=== PATIENT | male | born 1955 | race African-American/Black ===

== ENCOUNTER 2024-09-13 12:05 | Outpatient (CLI) | payer MEDICARE, MEDICAID, SELFPAY ==
--- NOTE | ~2024-09-13 | PE_ITS ---
EXAMINATION: PET_PETPSMAST_PT DATE: 09/13/2024 14:43 INDICATION: Malignant prostate cancer TECHNIQUE: 5.6 mCi of Illucix Ga-68([id number]) was administered i.v. Low dose computed tomogr aphy (CT) images were acquired from the base of the brain to the base of the brain to the proximal th ighs for attenuation correction and anatomic localization. Positron emission tomography (PET) images were acquired in the same distribution beginning 89 minutes after injection. Images including fused P ET/CT images were reconstructed in axial, coronal, and sagittal planes. Automated exposure control te [employer] was employed. The dose-length product was 1298.73mGy-cm. COMPARISON: None FINDINGS: Head/neck: Typical pattern of symmetric physiologic increased activity in the lacrimal, parotid and submandibula r glands as well as along the mucosa of the nasal and oral cavities, pharynx and hypopharynx. No path ologically enlarged cervical lymphadenopathy or suspicious foci of increased uptake in the visualized head or neck. Chest: Pleural-based calcified granulomata versus calcified pleural plaques in the dependent right lower lob e. No suspicious pulmonary nodules, pneumonia, pulmonary edema or pleural effusion. Heart size normal . Atherosclerotic coronary artery calcifications. No pericardial effusion. Thoracic aorta is normal i n caliber. Calcified right hilar lymph nodes consistent with old granulomatous disease. No pathologic ally enlarged or PSMA avid thoracic lymphadenopathy. Abdomen/pelvis/proximal thighs: Physiologic renal accumulation and excretion of activity in the kidneys, bladder and along portions o f ureters. 4 cm exophytic lesion at the upper pole the right kidney with soft tissue density but with out abnormal PSMA activity which could represent a complex proteinaceous/hemorrhagic cyst or solid re nal cell carcinoma. Photopenic defects associated with a couple cysts at the lower pole of the left k idney measuring up to 2.8 cm. Prostatomegaly with multiple brachytherapy seeds or surgical clips at t he periphery of the prostatectomy bed. There are also multiple surgical clips extending cephalad brianna g the bilateral external iliac vessels consistent with associated pelvic lymph node dissection. Incre ased PSMA activity with maximal SUV of 31.9 region of a 1.6 x 1.3 cm right external iliac chain lymph node suspicious for metastatic disease. Differential would include excreted urine activity within th e distal right ureter however the size of the region of uptake appears larger than expected for activ ity within the ureter. The ureters are unable to be definitively identified in the pelvis. No other p athologically enlarged or PSMA avid abdominal or pelvic lymphadenopathy. Postoperative changes of a p rior penile prosthesis with catheters extending along the left inguinal canal. Normal degree and slightly heterogenous pattern of increased uptake throughout the liver and spleen w ithout radiologic correlate or dominant PSMA avid lesion. The gallbladder, pancreas and bilateral adr enal glands are normal. Moderate uptake scattered throughout the bowels with typical duodenal and pro ximal jejunal predominance and without radiologic correlate, also likely physiologic. Prominent diffu se colonic diverticulosis without adjacent inflammatory stranding to suggest diverticulitis. Normal a ppendix. Musculoskeletal: Partially visualized intramedullary paige with interlocking subtrochanteric screw at the visualized pro ximal left femur. No suspicious lytic, blastic or abnormally PSA may avid bone lesions. IMPRESSION: 1. Prominent increased uptake in the right hemipelvis which appears to coincide with a 1.6 x 1.3 florentin lar right external iliac chain lymph node suspicious for metastatic disease. Artifactual activity wit hin the distal right ureter is considered significantly less likely. No other lesions suspicious for metastatic disease. 2. 4 cm exophytic lesion at the upper pole the right kidney which demonstrates soft tissue density an d could represent either a proteinaceous/hemorrhagic cyst or renal cell carcinoma. Recommend further evaluation with pre and post contrast MRI or CT. Reviewed, dictated and finalized at location A. IMPRESSION: 1. Prominent increased uptake in the right hemipelvis which appears to coincide with a 1.6 x 1.3 similar right external iliac chain lymph node suspicious for metastatic disease. Artifactual activity within the distal right ureter is cons idered significantly less likely. No other lesions suspicious for metastatic di sease. 2. 4 cm exophytic lesion at the upper pole the right kidney which demonstrates soft tissue density and could represent either a proteinaceous/hemorrhagic cyst or renal cell carcinoma. Recommend further evaluation with pre and post contra st MRI or CT.
--- OUTSIDE RECORDS SUMMARY | 2024-09-13 12:37 | XMS_ITS | Encounter Summary ---
[facility] [address] [place] [address] Phone Care Team Providers Care Pre Wave Assembler Name Role Phone Matthew Garcia MD Unavailable [phone] Matthew Garcia MD Primary Care Provider + [phone] Nando Shirley MD Unavailable [phone] Regan Robles MD Unavailable [phone] Encounter Details Date Type Department Care Team (Late st Contact Info) Description 05/20/2017 Orders Only [facility] [address] [place] [address] Matthew Garcia MD [address] [address] Social History Tobacco Use Types Packs/Day Years Used Date Smoking Tobacco: Former Smokeless Tobacco: Never Sex and Gender Information Value Date Recorded Sex Assigned at Not on file 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 Gender Identity Not on file Sexual Orientation Not on file documented as of this encounter Plan of Treatment Not on file documented as of this encounter Procedures Procedure Name Priority Date/Time Associated Diagnosis Comments SCAN - LABS 05/20/2017 11:23 AM PHOTOSTAT OPERATOR documented in this encounter Results * SCAN - LABS (05/20/2017 11:23 AM PHOTOSTAT OPERATOR) us Matthew Garcia MD Final Resu lt documented in this encounter Visit Diagnoses Not on filedocumented in this encounter Care Teams Pre Wave Assembler Relationship Specialty Start Date End Date Matthew Garcia MD PCP - General 01/23/17 Matthew Garcia MD 01/07/17 Nando Shirley MD [address] [address] Consulting Physician Orthopedic Surgery 04/29/20 Regan Robles MD [address] [place] [address] Consulting Physician Nephrology 02/05/24 documented as of this encounter
--- OUTSIDE RECORDS SUMMARY | 2024-09-13 12:37 | XMS_ITS | Encounter Summary ---
Author Organization [facility] Address [address] [place] [address] Phone Care Team Providers Care Trade Union Secretary Name Role Phone Nguyễn Bautista MD Primary Care Provider Matthew Garcia MD Unavailable [phone] Matthew Garcia MD Primary Care Provider + [phone] Nguyễn Bautista MD Primary Care Provider Matthew Garcia MD Primary Care Provider + [phone] Nando Shirley MD Unavailable [phone] Regan Robles MD Unavailable [phone] Encounter Details Date Type Department Care Team (Late st Contact Info) Description 01/16/2017 Orders Only [facility] [address] [place] [address] Matthew Garcia MD [address] [place] [address] Social History Tobacco Use Types Packs/Day Years Used Date Smoking Tobacco: Former Smokeless Tobacco: Never Sex and Gender Information Value Date Recorded Sex Assigned at Not on file 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 Gender Identity Not on file Sexual Orientation Not on file documented as of this encounter Plan of Treatment Not on file documented as of this encounter Procedures Procedure Name Priority Date/Time Associated Diagnosis Comments SCAN - LABS 01/16/2017 4:05 PM CDT documented in this encounter Results * SCAN - LABS (01/16/2017 4:05 PM CDT) Matthew Garcia MD Final Resu lt documented in this encounter Visit Diagnoses Not on filedocumented in this encounter Care Teams Trade Union Secretary Relationship Specialty Start Date End Date Nguyễ[place] [address] [address] [facility] [address] [place] [address] PCP - General 01/07/17 01/16/17 [place] [address] [address] [facility] [address] [place] [address] PCP - General 01/17/17 01/20/17 Nguyễ[place] [address] [address] [facility] [address] [place] [address] PCP - General 01/21/17 01/22/17 [place] [address] [address] [facility] [address] [place] [address] PCP - General 01/23/17 [place] [address] [address] [facility] [address] [place] [address] 01/07/17 Nando Shirley MD [address] [facility] [address] [place] [address] Consulting Physician Orthopedic Surgery 04/29/20 Regan Robles MD [address] [place] [address] [address] [place] [address] Consulting Physician Nephrology 02/05/24 documented as of this encounter
--- OUTSIDE RECORDS SUMMARY | 2024-09-13 12:37 | XMS_ITS | Encounter Summary ---
Author Organization [facility] Address [address] [place] [address] Phone Care Team Providers Care Material Combiner Name Role Phone Matthew Garcia MD Unavailable [phone] Matthew Garcia MD Primary Care Provider + [phone] Nando Shirley MD Unavailable [phone] Regan Robles MD Unavailable [phone] Encounter Details Date Type Department Care Team (Late st Contact Info) Description 07/31/2022 Orders Only [facility] [address] [place] [address] Scanning, Provider Social History Tobacco Use Types Packs/Day Years Used Date Smoking Tobacco: Former Cigarettes Q uit: 02/12/2015 Smokeless Tobacco: Never Alcohol Use Standard Drinks/Week Comments Yes 3 (1 standard drink = 0.6 oz pur e alcohol) PHQ-2 Answer Date Recorded PHQ-2 Total Score (If total score is 3 or more points, staff should administer the PHQ-9) 0 09/14/2021 Sex and Gender Information Value Date Recorded Sex Assigned at Not on file 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 Gender Identity Not on file Sexual Orientation Not on file documented as of this encounter Plan of Treatment Not on file documented as of this encounter Procedures Procedure Name Priority Date/Time Associated Diagnosis Comments SCAN - LABS 07/31/2022 documented in this encounter Results * SCAN - LABS (07/31/2022) us Provider Scanning Final Result documented in this encounter Visit Diagnoses Not on filedocumented in this encounter Care Teams Material Combiner Relationship Specialty Start Date End Date Matthew Garcia MD PCP - General 01/23/17 Matthew Garcia MD 01/07/17 Nando Shirley MD [address] [address] Consulting Physician Orthopedic Surgery 04/29/20 Regan Robles MD [address] [place] [address] Consulting Physician Nephrology 02/05/24 documented as of this encounter
--- OUTSIDE RECORDS SUMMARY | 2024-09-13 12:37 | XMS_ITS | Encounter Summary ---
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 Gender Identity Not on file Sexual Orientation Not on file documented as of this encounter Plan of Treatment Not on file documented as of this encounter Procedures Procedure Name Priority Date/Time Associated Diagnosis Comments PULMONARY - RESULT SCAN 10/24/2022 SCAN - RADIOLOGY/IMAGING 06/04/2022 documented in this encounter Results * PULMONARY - RESULT SCAN (10/24/2022) Anatomical Region Laterality Modality Other us Provider Scanning Final Result * SCAN - RADIOLOGY/IMAGING (06/04/2022) Anatomical Region Laterality Modality Other us Provider Scanning Final Result documented in this encounter Visit Diagnoses Not on filedocumented in this encounter Care Teams Proof Coins Inspector Relationship Specialty Start Date End Date Matthew Garcia MD PCP - General 01/23/17 Matthew Garcia MD 01/07/17 Nando Shirley MD [address] [facility] [address] [place] [address] Consulting Physician Orthopedic Surgery 04/29/20 Regan Robles MD [address] [place] [address] Consulting Physician Nephrology 02/05/24 documented as of this encounter
--- OUTSIDE RECORDS SUMMARY | 2024-09-13 12:37 | XMS_ITS | Continuity of Care Document ---
Author Organization [facility] Address [address] [facility] [address] [place] [address] Phone Care Team Providers Care Retail Seasonal Specialist Name Role Phone Stalin Shirleymat Unavailable Unavailable Allergies, Adverse Reactions, Alerts Substance Reaction Status Criticality No Known Allergies Active No Inform ation Medications Medication Instructions Dosage Effective Dates (start - stop) Status Comments meloxicam 15 mg tablet take 1 tablet by oral route every day 15 MG - Active Keflex 500 mg capsule take 1 capsule by oral route TID - Active metoprolol succinate ER 50 mg tablet,extended release 24 hr - Active hydrocodone 10 mg-acetaminophen 325 mg tablet - Active Narcan 4 mg/actuation nasal spray - Active hydrochlorothiazide 25 mg tablet - Active Tradjenta 5 mg tablet - Acti ve gabapentin 100 mg capsule - Active atorvastatin 40 mg tablet - Active glimepiride 1 mg tablet - Ac tive losartan 50 mg tablet - Acti ve febuxostat 40 mg tablet - Ac tive prednisone 20 mg tablet - Ac tive pioglitazone 15 mg tablet - Active Uloric 40 mg tablet - Active Colcrys 0.6 mg tablet - Acti ve cyclobenzaprine 5 mg tablet - Active methylprednisolone 4 mg tablets in a dose pack - Active tramadol 50 mg tablet - Acti ve Januvia 100 mg tablet - Acti ve trazodone 100 mg tablet - Ac tive Procedures Procedure Date X-ray exam knee, 3 views X-ray Exam Hip Unilat With Pelvis When P erf 2-3 View Office/outpatient visit,est, mod 2023 Asp/inject major joint or bursa w/o US g uidance Kenalog 40mg/mL X-ray exam knee, 4+ views Office/outpatient visit,est, mod 2022 Asp/inject major joint or bursa w/o US g uidance Kenalog 40mg/mL X-ray exam tib/fib, 2 views X-ray Exam, Femur 2 Views Office/outpatient visit,est, mod 2020 Supplemental Report X-ray Exam, Femur 2 Views X-ray exam tib/fib, 2 views Office/outpatient visit,est, mod 2020 X-ray Exam, Femur 2 Views X-ray exam tib/fib, 2 views Global/Postop followup visit Global/Postop followup visit Supplemental Report X-ray Exam, Femur 2 Views X-ray exam tib/fib, 2 views Global/Postop followup visit Supplemental Report X-ray exam knee, 4+ views Office/outpatient visit,est, mod 2019 Supplemental Report Office consultation, high Prolonged serv, w/o contact, 1st hr Advance Directives Directive Yes / No Effective Date File Name No Information Encounters Encounter Description Practice Location Reason(s) For Visit Diagnoses Date Provider Providers Copied on Encounter [facility], [address], [id number], [place] tel:[phone] [facility] No Information 4 Casper Gante deandra. [address] [facility] [place] [address], [place], [place], [id number], [place]. tel:[phone] [facility], [address] [address], [place], [place], [id number], [place] tel:[phone] [facility] No Information 4 Kayla Treviño. [address] [facility], [place] [address], [place], [place], [address], [place]. tel:[phone] Office/outpa tient visit,est, [facility], [address] [address], [place], [place], [address], [place] tel:[phone] [facility] Right Knee (chief complaint) Pain in right kneePain in right hipUnilateral primary osteoarthritis , right kneeUnilateral primary osteoarthritis , right hip 4 Kayla Treviño. [address] [facility], [place] [address], [place], [place], [id number], [place]. tel:[phone] Referring Provider: Hudson Rendon, [facility] [address], [place], [address]. tel:[phone] [facility], [address] [place] [address], [id number], [place] tel:[phone] [facility] Pain in left knee 4 [facility] Matthew. [address] [facility], [place] [address], [place], [place], [address], [place]. tel:[phone] Office/outpa tient visit,est, [facility], [address] [address], [place], [place], [address], [place] tel:[phone] [facility] right knee (chief complaint) Pain in right knee 3 [place]. [address] [place] [address], [place] [address], [place], [place], [address], [place]. tel:[phone] Referring Provider: Nando Sethi, [address] [facility] [address] [facility], [place], [address]. tel:[phone] [facility], [address] [facility] [address], [place], [place], [address], [place] tel:[phone] [facility] Pain in left knee 3 Caspercodey Wagoner r. [address] [facility], [address], [place], [place], [address], [place]. tel:[phone] [facility], [address] [address], [place], [place], [address], [place] tel:[phone] [facility] Pain in left knee Feb-0 3 Casper Wagoner r. [address] [facility], [place] [address], [place], [place], [address], [place]. tel:[phone] [facility], [address] [address], [place], [place], [address], [place] tel:[phone] [facility] Pain in left knee 2 Casper Ciaran r. [address] [facility], [address], [place], [place], [address], [place]. tel:[phone] Office/outpa tient visit,est, [facility], [address] [address], [place], [place], [address], [place] tel:[phone] [facility] left knee (chief complaint) Pain in left knee 1 Casper Ciaran r. [address] [facility], [address] [facility], [place], [place], [address], [place]. tel:[phone] Office/outpa tient visit,est, mod [facility], [address] [address], [place], [place], [address], [place] tel:[phone] [facility] left knee (chief complaint) Pain in left knee 1 Casper liriano. [address] [facility], [address], [place], [place], [address], [place]. tel:[phone] [facility], [address] [facility] [address], [place], [place], [address], [place] tel:[phone] [facility] Pain in left knee 1 Casper Wagoner r. [address] [facility], [address], [place], [place], [address], [place]. tel:[phone] [facility], [address] [facility] [address], [place], [place], [address], [place] tel:[phone] [facility] Left knee (chief complaint) Pain in left knee 1 Casper Wagoner r. [address] [facility], [address], [place], [place], [address], [place]. tel:[phone] [facility], [address] [address], [place], [place], [address], [place] tel:[phone] [facility] Pain in left knee 1 Casper Wagoner r. [address] [facility], [address], [place], [place], [address], [place]. tel:[phone] [facility], [address], [id number], [place] tel:[phone] [facility] Left Knee (chief complaint) Pain in left knee Jun-0 1 Casper Wagoner r. [address] [facility], [address], [place], [place], [address], [place]. tel:[phone] [facility], [address] [address], [place], [place], [address], [place] tel:[phone] [facility] No Information 1 Casper Gante r. [address] [facility], [address], [place], [place], [address], [place]. tel:[phone] [facility], [address], [id number], tel:[phone] [facility] Left Knee (chief complaint) Pain in left knee 1- 1 Casper Ciaran r. [address] [facility], [address], [place], [place], [address], [place]. tel:[phone] [facility], [address] [address], [place], [place], [address], [place] tel:[phone] [facility] Pain in left knee 0 2- 0 Casper Ciaran r. [address] [facility], [place] [address], [place], [place], [address], [place]. tel:[phone] Office/outpa tient visit,[facility], [facility], [address], [id number], tel:[phone] [facility] Left Knee (chief complaint) Pain in left knee 0 7- 0 Casper Ciaran r. [address] [facility], [address] [facility], [place], [place], [address], [place]. tel:[phone] Office consultation , [facility], [address], [id number], [place] tel:[phone] [facility] Left Knee (chief complaint) Pain in left knee 3 0-201 9 Casper Ciaran r. [address] [facility], [address], [place], [place], [address], [place]. tel:[phone] Family History Family Member Type Diagnosis Age At Onset Mother Problem (finding) Hypertension Mother Problem (finding) Heart Disease Sister Problem (finding) Cancer, unknown Father Problem (finding) Hypertension Sister Problem (finding) Diabetes Father Problem (finding) Heart Disease Immunizations Vaccine Date Status Comments influenza, injectable, quadrivalent, (3 years or older) administered Note: per patient ; Source: Source Unspecified Payers Payer name Insurance type Covered alliance party ID Authoriza tion(s) No Information Social History Type Description Quantity Date Captured Comments Alcohol Use Details Unknown Caffeine Use Details Unknown Tobacco Use Status No Information Smoking Status No Information Sex Male Chief Complaint And Reason For Visit No Information Reason For Referral Reason For Referral No Information Plan Of Treatment Date Type Action Status Referral Ordered: X-ray exam knee, 3 views RT knee ordered Referral Ordered: X-ray Exam Hip Unilat With Pelvis When Perf 2-3 View RT hip ordered Referral Ordered: X-ray exam knee, 4+ views RT knee ordered Referral Ordered: X-ray exam tib/fib, 2 views LT ordered Referral Ordered: X-ray Exam, Femur 2 Views LT ordered Referral Ordered: X-ray Exam, Femur 2 Views LT femur ordered Referral Ordered: X-ray exam tib/fib, 2 views LT tibia ordered Referral Ordered: X-ray exam knee, 4+ views LT knee ordered History Of Present Illness Encounter Date Complaint History Of Prese nt Illness Right Knee Ephraim presents t o the office today for evaluation of his right hip and knee pain. There has been present for a number of months in the hip, but the knee pain has been present for years. He is experiencing diffuse hip pain that is sharp and radiates into the thigh and diffuse right knee pain. He rates both the knee and hip pain at a 9 out of 10 with an aching almost constant and sharp intermittent nature. He is followed by pain management and receives prescription pain medications which she is utilizing for pain control. He is ambulating with the use of a walker at today's office visit. right knee Ephraim is a 67 ye ar-old male who presents to the office for evaluation of right knee pain. left knee Ephraim is a 65 ye ar-old male who presents to the office for evaluation of left knee pain. left knee Ephraim is a 65 ye ar-old male who presents to the office for left knee pain. Left knee Left Knee Left Knee Left Knee Left Knee Functional Status Date Functional Assessmen t No Information Instructions Date Instruction Additional Infor tito Pathophysiology of t he disease process was discussed. Conservative treatment options were discussed includin) Cortisone and viscosupplementation injections2) Physical therapy, exercise and strengthening regimen with initiation of weight training and reduction to impact loading, transition to using a bike or swimming3) Rest, ice, heat, elevation, compression4) Oral and topical nonsteroidal anti-inflammatory medication and analgesic5) Weight loss6) BracingRisks and benefits of cortisone injection were discussed. The frequency of injection schedule were discussed. At this time the patient would like to proceed with cortisone injections into the right knee. All questions were answered and concerns addressed. Ephraim demonstrates appropriate understanding of the diagnosis and plan of care at this time and we will see them back as neededWritten consent for the procedure was obtained. The patient was seated with the knees bent to 90 degrees of flexion. The right knee was prepped with alcohol and chlorhexidine. The skin was anesthetized with Ethyl Chloride spray and a 22 gauge needle was used to introduce 40 mg of Kenalog and 3 mL of 1% Lidocaine plain into the knee joint. The area of injection was then cleaned and a sterile bandage was placed. The procedure was completed without complication, and was well tolerated by the patient. Patient was educated on post injection care instructions and discharged in stable condition.Dictation completed with [employer] Practice Edition software, grammatical variances and spelling errors may inadvertently occur. Related to Unilateral primary osteoarthritis, right knee Pathophysiology of t he disease process was reviewed in depth. Conservative treatment options were reviewed including physical therapy, intra-articular joint injection under fluoroscopy, the use of ice or heat, [id number] oral and topical analgesics and NSAIDs and continued follow-up with pain management. As the pain in his knee is greater than the pain in his hip he does not wish to proceed with injection into the hip at this time. He will call and schedule appointment if he wishes to proceed with injection. All questions were answered and concerns addressed. Ephraim demonstrates appropriate understanding of the diagnosis and plan of care at this time. He will follow-up with our office as needed. Related to Unilateral primary osteoarthritis, right hip Assessments Type Assessment Date No Information Patient Care Teams Name Effective Dates (start - stop) Status Members No Information
--- OUTSIDE RECORDS SUMMARY | 2024-09-13 12:37 | XMS_ITS | Encounter Summary ---
Author Organization [facility] Address [address] [place] [address] Phone Care Team Providers Care Infection Prevention Practitioner Name Role Phone Matthew Garcia MD Unavailable [phone] Matthew Garcia MD Primary Care Provider + [phone] Nando Shirley MD Unavailable [phone] Regan Robles MD Unavailable [phone] Encounter Details Date Type Department Care Team (Late st Contact Info) Description 07/24/2017 Orders Only [facility] [address] [place] [address] Matthew Garcia MD [address] [address] Social History Tobacco Use Types Packs/Day Years Used Date Smoking Tobacco: Former Smokeless Tobacco: Never Sex and Gender Information Value Date Recorded Sex Assigned at Not on file 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 Gender Identity Not on file Sexual Orientation Not on file documented as of this encounter Plan of Treatment Not on file documented as of this encounter Procedures Procedure Name Priority Date/Time Associated Diagnosis Comments CARDIOLOGY DOCUMENT SCAN 07/24/2017 1:23 PM CDT documented in this encounter Results * SCAN - CARDIOLOGY (07/24/2017 1:23 PM CDT) Anatomical Region Laterality Modality Other Matthew Garcia MD CV CARDIAC SERVICES PROCED URES Final Result documented in this encounter Visit Diagnoses Not on filedocumented in this encounter Care Teams Infection Prevention Practitioner Relationship Specialty Start Date End Date Matthew Garcia MD PCP - General 01/23/17 Matthew Garcia MD 01/07/17 Nando Shirley MD [address] [facility] [address] [place] [address] Consulting Physician Orthopedic Surgery 04/29/20 Regan Robles MD [address] [place] [address] [address] Consulting Physician Nephrology 02/05/24 documented as of this encounter
--- OUTSIDE RECORDS SUMMARY | 2024-09-13 12:38 | XMS_ITS | CONTINUITY OF CARE DOCUMENT ---
Author Name ubaldo conner Address Unknown Organization [facility] [address] Address [address] [place] [address] Phone [phone] Care Team Providers Care Chipper Operator Name Role Phone Ayden FRIED, Gisela Unavailable Gisela Hensley MD Unavailable [phone] INSURANCE PROVIDERS Payer name Policy type / Coverage type [place] [employer] party ID [employer] AD[employer]TRA HMO Commercial insurance co [facility] [id number] HEALTHCARE AND FAMILY SERVICES Medicaid 0 [id number]
--- OUTSIDE RECORDS SUMMARY | 2024-09-13 12:38 | XMS_ITS | Clinical Summary ---
Author Organization [facility] [address] Address [address] [facility] [place] [address] Phone Care Team Providers Care Can Stacker Name Role Phone Michael Garcia MD Unavailable [phone] Michael Garcia MD Primary Care Provider [phone] Nando Shirley MD Unavailable [phone] Regan Robles MD Unavailable [phone] Allergies No known active allergies Medications blood-glucose meter (ONETOUCH ULTRA SYSTEM KIT) kit use once daily to test blood sugar 1 kit 0 03/03/20 13 Active HYDROcodone-aceta minophen (NORCO) 10-325 mg per tablet Take 1 tablet by mouth every 6 (six) hours as needed 12/15/19 19 Active blood glucose diagnostic (OneTouch Ultra Test) strip USE TO TEST EVERY DAY 100 strip 1 05/09/20 23 Active OneTouch Delica Plus Lancet 30 gauge misc USE TO CHECK BLOOD SUGAR ONCE DAILY 100 each 1 05/09/20 23 Active tamsulosin (FLOMAX) 0.4 mg extended release capsule Take 1 capsule (0.4 mg total) by mouth daily 11/19/19 24 025 Active allopurinoL (ZYLOPRIM) 300 mg tabletIndications :Idiopathic gout, unspecified chronicity, unspecified site Take 1 tablet by mouth once daily 90 tablet 1 03/30/20 24 Active calcitRIOL (ROCALTROL) 0.25 mcg capsuleIndication s:Vitamin D deficiency Take 1 capsule by mouth once daily 90 capsule 1 05/13/19 25 Active mecobalamin-folic acid 1,000-200 mcg tablet, sublingual Place 1 tablet under the tongue daily Active amLODIPine (NORVASC) 5 mg tabletIndications :Heart palpitations Take 1 tablet (5 mg total) by mouth daily 90 tablet 1 07/07/19 25 Active aspirin 81 mg enteric coated tabletIndications :Heart palpitations Take 1 tablet (81 mg total) by mouth daily 90 tablet 1 07/07/19 25 Active linaGLIPtin (Tradjenta) 5 mg tabletIndications :Type 2 diabetes mellitus with chronic kidney disease, without long-term current use of insulin, unspecified CKD stage (HCC) Take 1 tablet by mouth once daily 90 tablet 1 08/07/19 25 Active carvediloL (COREG) 3.125 mg tabletIndications :Other chest pain Take 1 tablet (3.125 mg total) by mouth 2 (two) times a day 180 tablet 1 08/24/19 25 Active atorvastatin (LIPITOR) 40 mg tabletIndications :Mixed hyperlipidemia Take 1 tablet by mouth once daily 90 tablet 1 09/02/19 25 Active atorvastatin (LIPITOR) 40 mg tabletIndications :Mixed hyperlipidemia Take 1 tablet by mouth once daily 90 tablet 1 03/05/20 24 025 Discontinued carvediloL (COREG) 3.125 mg tablet Take 1 tablet (3.125 mg total) by mouth 2 (two) times a day 05/25/19 25 025 Discontinued(Re order) Active Problems Problem Noted Date Diagnosed Date End stage renal disease 07/20/2024 Dizziness 04/26/2024 Assessment & Plan (07/17/2024 6:35 PM OIL RIG ROUGHNECK): Patient is admitted to [facility] in end of 13 May 2024 because of dizziness sustained approximately 3 days did see him on a follow-up visit his dizziness has resolved at this time no further testing indicated. Patient is so advised. Assessment & Plan (07/14/2024 4:41 PM OIL RIG ROUGHNECK): Admitted to [facility] on 05/24/2024 intense dizziness patient is subsequently discharged on May 26, 2024 and went to extended Care for 2 days and discharge for home patient has a thorough evaluation including CT scans head cardiac monitoring exact etiology was found patient has known end-stage renal disease. Patient is awaiting renal transplant. Dialysis has been discussed with his route delivery driver Dr. Robles. The time of his visit on 06/03/2024 his symptoms dizziness have improved by least 80%. Medication reconciliation completed. Chronic health problems hypertension, hyperlipidemia, renal failure. Patient's diabetes excellent control for last 4 years. Hemoglobin 6.6-7.0 range consistently. Note for the visit of 06/03/2024 Assessment & Plan (05/08/2024 3:25 PM OIL RIG ROUGHNECK): Acute, symptoms in the last 1-2 weeks. See recent ER visit for these symptoms as outlined in HPI. Labs and head CT were unremarkable except for chronic CKD. Has also been in discussion with Cardiology that it may be related to his blood pressure- see plan for hypertension above. Has resolved since stopping nifedipine. Encounter for screening colonoscopy 06/20/2023 Heart palpitations 08/07/2022 Assessment & Plan (08/07/2022 3:45 PM CDT): Or palpitation several times a week this is new onset for him. Plans get a 30 day playground monitor. Patient's chronic renal failure diabetic. He is no significant chest pain or shortness with palpitations but they are aggravating to him Chronic left hip pain 05/22/2022 Assessment & Plan (05/22/2022 2:18 PM OIL RIG ROUGHNECK): Patient advised me has significant left hip pain the pain clinic is referring him to Dr. Pelaez orthopedic surgeon. 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 His lipid profile for 2019 for his pending previous lipid profile in therapeutic range Component Latest Ref Rng 11/07/2022 Cholesterol 30 - 199 mg/dL 161 Triglycerides <=149 mg/dL 98 HDL Cholesterol >=40 mg/dL 48 LDL Cholesterol Calc <=129 mg/dL 93 Non-HDL Cholesterol mg/dL 113 Chol/HDL ratio 3 Assessment & Plan (08/01/2023 5:49 PM CDT): Lipid profile therapeutic range no change in therapy Component Latest Ref Rng 11/07/2022 Cholesterol 30 - 199 mg/dL 161 Triglycerides <=149 mg/dL 98 HDL Cholesterol >=40 mg/dL 48 LDL Cholesterol Calc <=129 mg/dL 93 Non-HDL Cholesterol mg/dL 113 Chol/HDL ratio 3 GERD (gastroesophageal reflux disease) 0 CKD (chronic kidney disease) stage 5, GFR less than 15 ml/min 05/08/2020 Assessment & Plan (07/17/2024 6:36 PM OIL RIG ROUGHNECK): End-stage renal disease patient has seen a vascular surgeon had the [facility] preparing for dialysis at this time all of his lab is done by Nephrology Dr. Robles. Assessment & Plan (06/14/2024 1:43 PM OIL RIG ROUGHNECK): Considering patient utilizes both of his upper extremities for mobility and function due to his previous left knee issues, he would like to hold on any surgical procedural intervention at this point until he requires hemodialysis. We discussed the possibility of utilizing a Perma catheter at that point to see how he tolerates dialysis and then from there entertain permanent access options. He was agreeable to this plan, as he wants to maintain his level of function and not does not want to jeopardize it at any cost. Patient will call if and when he requires hemodialysis for next steps. Assessment & Plan (05/08/2024 3:22 PM OIL RIG ROUGHNECK): Chronic, stable. Co managed by Nephrology Baseline creatinine around 3.5, recent creatinine last week was up to 4.6. He is not on dialysis yet but has been discussing with his route delivery driver Dr. Robles. Continue hydrochlorothiazide and losartan as prescribed for now. We will continue to monitor Assessment & Plan (02/22/2024 6:39 PM CDT): Patient has end-stage renal disease stage IV. He is under care of Dr. Aravind Robles route delivery driver. Assessment & Plan (01/10/2024 4:26 PM CDT): Images from the original note were not included. Patient continues see Nephrology has appointment in the next 10 days. Made no changes in his medication with respect to his hypertension. Patient EGFR is 19 his diabetes has been reasonably controlled.. [facility] Outside Information Contains abnormal data Renal function panel Specimen: Blood - Blood, Venous Component Ref Range & Units 9 d ago Glucose 70 - 99 mg/dL 150 Abnormal BUN 8 - 19 mg/dL 50 Abnormal Creatinine 0.66 - 1.25 mg/dL 3.82 Abnormal Sodium 137 - 145 mEq/L 137 Potassium 3.5 - 5.1 mEq/L 4.7 Chloride 98 - 107 110 Abnormal Carbon Dioxide 22 - 30 mmol/L 24 Calcium 8.4 - 10.2 mg/dL 9.2 Phosphorus, Serum 2.5 - 4.5 mg/dL 4.0 Albumin (Blood) 3.0 - 4.4 g/dL 3.3 eGFR 1 Assessment & Plan (08/07/2022 3:43 PM CDT): Lab visit coming up in the next few weeks patient recently lab results pending ordered by Dr. Robles route delivery driver. Assessment & Plan (05/22/2022 2:11 PM OIL RIG ROUGHNECK): Patient advised me that Dr. Robles his route delivery driver advised him in approximately 1 year he may need to start dialysis Assessment & Plan (09/14/2021 3:35 PM CDT): Update BMP/EGFR to monitor patient chronic renal failure status Assessment & Plan (04/12/2021 1:51 PM OIL RIG ROUGHNECK): Patient under care of Dr. Aravind Robles he has had appointment the last 30 days I reviewed the notes patient is stable at this time. Patient has stage III chronic renal failure S/P total knee arthroplasty, left 05/08/2020 Left knee pain 03/13/2020 Overview (03/13/2020): Added automatically from request for surgery [id number] Medicare annual wellness visit, subsequent 02/10 Assessment & Plan (11/07/2022 6:49 PM CDT): History and physical completed patient's health risk assessment health maintenance reviewed in addressed. Seven components of patient's care gap are addressed. He is under care of route delivery driver therefore routine laboratory studies that I would do his part of his diabetes for his kidneys managed by his route delivery driver.. Assessment & Plan (09/14/2021 3:33 PM CDT): History and physical completed patient's health risk assessment health maintenance reviewed in completed. Patient's pneumonia shots have been completed both Pneumovax 23 and Prevnar 13 patient has completed COVID vaccines as well. He has states he has had eye exam by eye care provider . Request release of records from his eye care provider Assessment & Plan (02/11/2020 1:05 PM CDT): History and physical completed patient's health risk assessment health maintenance reviewed in addressed. Patient advised me received is a flu shot yesterday [facility]. Hemorrhoids 07/27/2019 Overview (07/27/2019): Added automatically from request for surgery [id number] Assessment & Plan (08/01/2023 5:44 PM CDT): Patient continues to have bleeding hemorrhoids he is advised me he is scheduled for colonoscopy in September of 2023 Assessment & Plan (09/14/2021 3:34 PM CDT): Patient is under care of GI regarding his hemorrhoidal problem Assessment & Plan (05/15/2021 3:00 PM OIL RIG ROUGHNECK): No hemorrhoids were seen on exam with valsalva, patient states once in a while he can feel them come out, and has been having more issues with bleeding with bowel movements. We discussed surgical approach vs gi scope/repeat infrared session, he is agreeable to GI less invasive as first approach, will send new referral for GI provider. Patient is understanding if gi is unable to fix the issue that we can then discuss the surgical approach, he is understanding. Assessment & Plan (04/12/2021 1:51 PM OIL RIG ROUGHNECK): Hemorrhoids continues to be a problem he has seen Dr. Oscar mcgarry of [facility] and the infrared coagulation treatment has not been effective will refer to General surgery. Assessment & Plan (11/08/2019 5:42 PM CDT): Symptomatic hemorrhoids related to constipation patient given samples MiraLax stool softener. Diabetic nephropathy associa brea with type 2 diabetes mellitus 02/22/2019 Hyperparathyroidism due to renal insufficiency 1 History of colon polyps 06/08/2018 Overview (06/08/2018): Added automatically from request for surgery [id number] Morbid obesity with BMI of 40.0-44.9, adult 12/2017 Assessment & Plan (07/17/2024 6:38 PM OIL RIG ROUGHNECK): Chronic problem unchanged BMI 40 past years BMI will be between 38-40. Comorbidity blood pressure well controlled diabetes well controlled end-stage renal disease weight 267 lb height 5 feet 8-1/2 inches Assessment & Plan (01/10/2024 4:36 PM CDT): Patient's body mass index is 40.52. Comorbidities hypertension, hypertension well controlled , chronic renal disease stage IV. Patient's obesity is a chronic problem 20+ years Assessment & Plan (11/07/2022 6:49 PM CDT): Patient's body mass index at this time is 34.47. His limited mobility secondary to his advanced arthritis both knees and hips. He walks with a walker Assessment & Plan (01/22/2022 4:07 PM CDT): No significant change in weight. Patient's limited in terms of activities secondary to his physical limitations of osteoarthritis and bilateral knee replacements. Assessment & Plan (02/08/2019 6:15 PM CDT): Weight is down 16 lb from 2 years ago patient has made some adjustments in his diet his diabetes is improving. Assessment & Plan (04/27/2018 5:04 PM OIL RIG ROUGHNECK): Body mass index 42.13 the patient is 5 ft 10 heigt 239 lb weight patient's osteoarthritis limits his exercise. Assessment & Plan (09/16/2017 10:54 AM CDT): History of morbid obesity for last 20 years patient aware the impact obesity on his health. Again recommend dietary restrictions. Patient is very limited on exercise secondary to severe arthritis. Vitamin D deficiency 06/28/2017 Overview (06/28/2017): Lab panel from the pain clinic shows vitamin-D level is down recheck that at this time advised patient take vitamin-D [id number]. No new recommendations Erectile dysfunction following radical prostatec lakeisha 04/11/2017 Assessment & Plan (04/11/2017 1:06 PM OIL RIG ROUGHNECK): Patient requested Viagra, was given samples by his urologist tried 1 time it did not work. Patient is given samples of Viagra 100 milligrams he understands instructions on how to take. Chronic pain of right knee 03/10/2017 Assessment & Plan (05/14/2021 3:52 PM OIL RIG ROUGHNECK): For the past 30 days he has had increased right knee pain. Patient's left knee status post knee replacement multiple complications. Patient's opinion needs putting more work load on his right knee which he may very well be doing.. Pain is worsened going from sitting to standing getting out of vehicles is HL as to him. He also feels like the knees wobbling his hips going to give out sometimes.. Patient is on hydrocodone for the pain clinic for his back.. This time get rec x-rays of his right knee start him on Naprosyn 500 mg b.i.d. every day one-month supply for refills progress report in 3-4 weeks. Assessment & Plan (02/11/2020 1:07 PM CDT): Patient's anticipate get the need for replacement in the next 60 days . Point with orthopedics scheduled for Friday Assessment & Plan (07/09/2019 12:57 PM OIL RIG ROUGHNECK): Patient advised me that he so a orthopedic surgeon is specializes in reconstructive knee surgery was advised he must lose weight before surgery to be done in the [place] get his HgbA1c down to 6.0.. I advised this patient and get back in contact with the orthopedic surgeon once his HgbA1c comes back next given results. I also get a specific goal on weight loss for his knee before surgery will be done. Assessment & Plan (10/06/2018 5:27 PM CDT): Patient fell injuries left knee. She is not having pain and swelling. Knee rid replaced least 6 7 years ago related to [employer]'s comp case. He advised me his traffic law attorney of a total in contact his PCP regarding this. Patient x-ray returned showing he has a fractured patella a broken screw in the prosthesis. Patient is to contact his traffic law attorney is any [employer]'s comp a involvement which I seriously doubt. Otherwise refer this patient to Dr. Guzman . Assessment & Plan (04/27/2018 5:12 PM OIL RIG ROUGHNECK): Chronic condition special left knee patient is wear knee brace permanently no change in status. Managed by Orthopedics. Drug-induced constipation 02/15/2017 Assessment & Plan (04/27/2018 5:12 PM OIL RIG ROUGHNECK): Managed by pain clinic. Assessment & Plan (02/15/2017 9:41 AM CDT): Patient having some constipation status post recent surgery in medication. Given samples of Linzess 72 milligrams 1 tablet daily. He needs to additional medicines he will call me for a prescription. Hospital discharge follow-up 02/10/2017 Assessment & Plan (05/25/2020 6:15 PM OIL RIG ROUGHNECK): Patient admitted to her [facility] had a total knee hardware of removed on 04/28/2020. Patient subsequently sent to a rehab at [facility]. Patient is doing well today blood pressures reviewed medications reviewed reconciliation of his medication completed. He is in no distress he has no respiratory cardiac problems. Patient keep his appointment with me this bring no further changes or recommendations at this time Assessment & Plan (02/15/2017 9:01 AM CDT): Patient's has prostate surgery since I last saw him. Following the surgery went back in for renal failure which was resolved was a temporary situation. Patient is now having considerable incontinence following his prostate surgery which is expected some people have this. He has no blood in his urine done no significant pain. Type 2 diabetes mellitus with renal complication 12/24/2016 Assessment & Plan (04/26/2024 10:00 PM OIL RIG ROUGHNECK): >>ASSESSMENT AND PLAN FOR DM (DIABETES MELLITUS) ([facility]) WRITTEN ON 11/09/2016 3:08 PM BY MICHAEL GARCIA MD Diabetes is unchanged. Continue current treatment regimen. Reminded to bring in blood sugar diary at next visit. Dietary recommendations for ADA diet. Discussed ways to avoid symptomatic hypoglycemia. Discussed sick day management. Discussed foot care. Diabetes will be reassessed in 6 months. Most recent hemoglobin HgbA1c was 6.63 months ago. Patient's hemoglobin A1cs have always been less than 7.0 Assessment & Plan (04/26/2024 10:00 PM OIL RIG ROUGHNECK): >>ASSESSMENT AND PLAN FOR DM (DIABETES MELLITUS) ([facility]) WRITTEN ON 04/11/2017 10:15 AM BY MICHAEL GARCIA MD . Patient's last HgbA1c was June 2016 was 6.6 plans at this time repeat hemoglobin HgbA1c today. Assessment & Plan (04/26/2024 10:00 PM OIL RIG ROUGHNECK): >>ASSESSMENT AND PLAN FOR DM (DIABETES MELLITUS) ([facility]) WRITTEN ON 06/06/2017 11:12 AM BY MICHAEL GARCIA MD Patient's hemoglobin HgbA1c has changed from 6.4 a year ago to 7.2 the past 30 days however patient is anemic with a hemoglobin of 9.2. Will start januvia at this time recheck in 3 months. Metformin previous discontinued because of renal functions. Assessment & Plan (04/26/2024 10:00 PM OIL RIG ROUGHNECK): >>ASSESSMENT AND PLAN FOR DM (DIABETES MELLITUS) ([facility]) WRITTEN ON 09/16/2017 10:50 AM BY MICHAEL GARCIA MD Diabetes is been pretty much under good control will get a repeat hemoglobin HgbA1c today. Assessment & Plan (04/26/2024 10:00 PM OIL RIG ROUGHNECK): >>ASSESSMENT AND PLAN FOR DM (DIABETES MELLITUS) ([facility]) WRITTEN ON 04/27/2018 5:07 PM BY MICHAEL GARCIA MD Diabetes has been well controlled hemoglobin HgbA1c runs anywhere from 6.4-7.1 range no change in therapy at this time Assessment & Plan (04/26/2024 10:00 PM OIL RIG ROUGHNECK): >>ASSESSMENT AND PLAN FOR DM (DIABETES MELLITUS) ([facility]) WRITTEN ON 07/24/2018 4:31 PM BY MICHAEL GARCIA MD Diabetes is unchanged. Continue current treatment regimen. Reminded to bring in blood sugar diary at next visit. Dietary recommendations for ADA diet. Regular aerobic exercise. Discussed ways to avoid symptomatic hypoglycemia. Discussed sick day management. Discussed foot care. Diabetes will be reassessed in 6 months. Assessment & Plan (04/26/2024 10:00 PM OIL RIG ROUGHNECK): >>ASSESSMENT AND PLAN FOR DM (DIABETES MELLITUS) ([facility]) WRITTEN ON 10/06/2018 5:27 PM BY MICHAEL GARCIA MD Patient's last hemoglobin HgbA1c was 7.2. Will repeat HgbA1c today date of lipid profile and BMP. Patient has limited exercise given his restriction with his knees Assessment & Plan (04/26/2024 10:00 PM OIL RIG ROUGHNECK): >>ASSESSMENT AND PLAN FOR DM (DIABETES MELLITUS) ([facility]) WRITTEN ON 02/08/2019 6:18 PM BY MICHAEL GARCIA MD Diabetes reasonably controlled hemoglobin HgbA1c 7.2 patient is limited in terms of exercising due secondary to severe arthritis of his knee pain. Is following a diet much better his weight is stable. No further recommendations at this time continue to monitor his diabetes. Will check lipid profile on next visit. Patient's advised he needs to get an update on his eye exam. Assessment & Plan (04/26/2024 10:00 PM OIL RIG ROUGHNECK): >>ASSESSMENT AND PLAN FOR DM (DIABETES MELLITUS) ([facility]) WRITTEN ON 07/09/2019 12:54 PM BY MICHAEL GARCIA MD Patient's weight is down 16 lb from the last visit he has made dietary changes since May 12 he is no longer a eating candy drinking sodas. Anticipate his HgbA1c below be improved as well as lipid profile. Assessment & Plan (04/26/2024 10:00 PM OIL RIG ROUGHNECK): >>ASSESSMENT AND PLAN FOR DM (DIABETES MELLITUS) ([facility]) WRITTEN ON 08/13/2019 4:13 PM BY MICHAEL GARCIA MD Patient's diabetes very well control HgbA1c is 6.9 % improvement from 7.8 approximately 10 months ago.. Patient is taking Actos/pioglitazone and tradjenta. 5mg/day. Repeat HgbA1c on next visit. Assessment & Plan (04/26/2024 10:00 PM OIL RIG ROUGHNECK): >>ASSESSMENT AND PLAN FOR DM (DIABETES MELLITUS) ([facility]) WRITTEN ON 11/08/2019 5:42 PM BY MICHAEL GARCIA MD Last hemoglobin HgbA1c was 7.1 will get update today patient's low bit less active at this time because of knee pain. His findings standing patient's knee pain has been delayed because of his HgbA1c 6.5 . No polyuria polyphagia polydipsia. Will consider a SGOT 2 product if his HgbA1c does not returned closer to normal Assessment & Plan (04/26/2024 10:00 PM OIL RIG ROUGHNECK): >>ASSESSMENT AND PLAN FOR DM (DIABETES MELLITUS) ([facility]) WRITTEN ON 02/11/2020 1:06 PM BY MICHAEL GARCIA MD Patient most HgbA1c was 6.6. Repeat HgbA1c in 4 months Assessment & Plan (04/26/2024 10:00 PM OIL RIG ROUGHNECK): >>ASSESSMENT AND PLAN FOR DM (DIABETES MELLITUS) ([facility]) WRITTEN ON 04/20/2020 6:59 PM BY MICHAEL GARCIA MD Diabetes continues to be well controlled. Assessment & Plan (04/26/2024 10:00 PM OIL RIG ROUGHNECK): >>ASSESSMENT AND PLAN FOR DM (DIABETES MELLITUS) ([facility]) WRITTEN ON 12/11/2020 7:00 PM BY MICHAEL GARCIA MD Patient feels well continues to check his glucose several times a week results been very good. Will update HgbA1c urine for microalbuminuria and BMP on today's visit. Patient made aware he needs to get eye exam once a year. Assessment & Plan (04/26/2024 10:00 PM OIL RIG ROUGHNECK): >>ASSESSMENT AND PLAN FOR DM (DIABETES MELLITUS) ([facility]) WRITTEN ON 04/12/2021 1:48 PM BY MICHAEL GARCIA MD Tension well controlled patient recent HgbA1c at the route delivery driver's office results was 6.9. No change in therapy Assessment & Plan (04/26/2024 10:00 PM OIL RIG ROUGHNECK): >>ASSESSMENT AND PLAN FOR DM (DIABETES MELLITUS) ([facility]) WRITTEN ON 01/22/2022 4:09 PM BY MICHAEL GARCIA MD Hemoglobin HgbA1c 7.3 patient has no polyuria polyphagia polydipsia. Will continue present therapy. Reviewed patient's glucometer readings. Recheck HgbA1c Assessment & Plan (04/26/2024 10:00 PM OIL RIG ROUGHNECK): >>ASSESSMENT AND PLAN FOR DM (DIABETES MELLITUS) ([facility]) WRITTEN ON 08/07/2022 3:41 PM BY MICHAEL GARCIA MD Patient did not tolerate Toujeo at 1.5 mg once a week I am going to resume Tradjenta management of his diabetes the Tradjenta his HgbA1c was 7.15 April 2022. Patient's chronic renal failure he just had lab [facility] in [facility] in the past 5 days requested release of records from there. Patient will be seen in route delivery driver next few days. Like to maximize medications control his diabetes. He is stage IV chronic renal failure last EGFR was 25 Assessment & Plan (02/22/2024 6:40 PM CDT): End-stage renal disease patients is on Tradjenta he is not on insulin in his hemoglobin HgbA1c has been between 6.4-7.0 the past 4 years. No change in therapy regarding his diabetes Assessment & Plan (11/07/2022 6:50 PM CDT): Diabetes very well controlled HgbA1c is 6.7 patient is tolerating medications no change in therapy.. His diabetes with chronic renal failure. Hgb A1C Latest Ref Rng 4.0 - 5.6 % 07/09/2019 6.9 (H) 11/08/2019 6.6 (H) 04/18/2020 6.7 (H) 12/11/2020 6.9 (H) 09/14/2021 7.3 (H) 11/07/2022 6.7 (H) Legend: (H) High Assessment & Plan (04/26/2024 10:00 PM OIL RIG ROUGHNECK): >>ASSESSMENT AND PLAN FOR TYPE 2 DIABETES MELLITUS WITH RENAL COMPLICATION (HCC) WRITTEN ON 06/26/2022 3:11 PM BY MICHAEL GARCIA MD Patient was given Trulicity on the last visit. Developed diarrhea within 2 days of taking Trulicity decided to stop it. He is now her more information on Trulicity in the positive aspects he would like to resume. Advised him to proceed with 0.75 mg once weekly progress report when he gets his last dose has 3 doses left. Most recent HgbA1c is 7.3 >>ASSESSMENT AND PLAN FOR DM (DIABETES MELLITUS) (HCC) WRITTEN ON 06/26/2022 3:10 PM BY MICHAEL GARCIA MD Patient was given Trulicity on the last visit. Developed diarrhea within 2 days of taking Trulicity decided to stop it. He is now her more information on Trulicity in the positive aspects he would like to resume. Advised him to proceed with 0.75 mg once weekly progress report when he gets his last dose has 3 doses left. Most recent HgbA1c is 7.3 Assessment & Plan (05/22/2022 2:11 PM OIL RIG ROUGHNECK): Patient's HgbA1c is 7.5 minute discontinue Tradjenta replace this with Trulicity 0.75 mg once a week is 4 weeks supply samples are given. Patient understands that in the 4 weeks he is let me know if he is tolerating medicines I will titrate up as needed. Assessment & Plan (09/14/2021 3:34 PM CDT): Diabetes has been well controlled will get an update on his BMP fasting lipid profile as well as HgbA1c today. Assessment & Plan (08/07/2020 12:19 PM CDT): Hemoglobin HgbA1c is been consistently less than 7 for last year and a half. Will repeat check on next visit in 4 months. Glucometer readings reasonably good. Patient is feeling in his foot and his circulation is good. Malignant neoplasm of prostate 12/05/2016 Chronic midline low back pain with left-sided sc iatica 11/27/2016 Assessment & Plan (01/10/2024 4:28 PM CDT): Chronic back pain patient utilizes Tylenol he can not utilize non steroidal anti-inflammatorys secondary to renal failure. Assessment & Plan (07/24/2018 4:33 PM CDT): Patient made me aware that he is having chronic neck pain is been follow-up in the pain clinic regarding this. Advised patient to continue exercises that he was taught at the pain clinic. Impaired gait and mobility 11/27/2016 Assessment & Plan (11/07/2022 6:52 PM CDT): Patient does very well ambulating with the walker for the past several years. No history of falls in the past 2 years Chronic narcotic use 11/27/2016 Overview (11/26/2023): Has been on [place] for about the past 2 years for chronic low back pain. History of gout 11/27/2016 Tobacco abuse, in remission 11/27/2016 Overview (11/26/2023): Stop smoking cigarettes October 2015. Total of 15 pack year history. He initially smoked 1 pack per day for 10 years then quit for 20 years and then resume 1 pack per day for another 5 years and then quit October 2015. Malignant neoplasm of prosta te with intermediate recurrence risk, stage T2B-C or Neligh 7 or prostate-specific antigen (PSA) 10-20 11/09/2016 Assessment & Plan (11/09/2016 3:02 PM CDT): Patient recently had a biopsy showing prostate cancer. Schedule have surgery in about 2-3 weeks he will be treated through [facility] Grade III hemorrhoids 11/09/2016 Assessment & Plan (07/27/2019 1:20 PM CDT): III roids. Discussed options of conservative treatment, IRC, surgery. He desires IRC so will set it up Assessment & Plan (07/09/2019 12:55 PM OIL RIG ROUGHNECK): Patient continues to have bleeding hemorrhoids he states he will get back in contact with the hedis abstractor possibly have a procedure done this solve this problem. Assessment & Plan (04/30/2019 3:37 PM OIL RIG ROUGHNECK): Bleeding cihaq1um prolapse and reviewed recent colonoscopy. Discussed anusol HC, IRC, surgery. He wants to try the anusol first. His Left knee need reconstruction and I warned of the opiod induced [id number] so he is aware of need of combating that post op. He to see the surgeon at [facility] next week. He will call to try IRC after xmas if supps fail. Assessment & Plan (11/09/2016 3:03 PM CDT): Patient had a biopsy of his prostate few weeks ago. He is having some blood on toilet, and occasional rectal discomfort. The patient is given patient information regarding management of hemorrhoids including using Preparation-H or similar products. Because of his osteoarthritis he cannot take of and Sitz baths. Hypertension, essential 06/28/2015 Assessment & Plan (05/08/2024 3:17 PM OIL RIG ROUGHNECK): Chronic, uncontrolled. See HPI for details, cardiology had increased his nifedipine but he got dizzy and they meant to decrease it back to 30 but he stopped it altogether and has been without it for the last 2 or 3 days. Running 170s over 80s at home and now complaining of intermittent frontal throbbing headaches. Advised to restart nifedipine 30 mg as directed, continue losartan, metoprolol, isosorbide, hydrochlorothiazide as prescribed. Low-salt diet and heart healthy exercise encouraged. Assessment & Plan (04/26/2024 9:58 PM OIL RIG ROUGHNECK): >>ASSESSMENT AND PLAN FOR HTN (HYPERTENSION), BENIGN WRITTEN ON 08/07/2020 12:18 PM BY MICHAEL GARCIA MD Slight elevation blood pressure today. Patient just completed physical therapy is doing well. No change in therapy at this time see him back in 4 months. Patient has gained 10 lb since his last visit he plans to do better in manage his diet. Assessment & Plan (04/26/2024 9:58 PM OIL RIG ROUGHNECK): >>ASSESSMENT AND PLAN FOR HTN (HYPERTENSION), BENIGN WRITTEN ON 04/12/2021 1:49 PM BY MICHAEL GARCIA MD Hypertension well controlled patient is tolerating medications. Us with patient trying may do better at controlling weight. Assessment & Plan (04/26/2024 9:58 PM OIL RIG ROUGHNECK): >>ASSESSMENT AND PLAN FOR HTN (HYPERTENSION), BENIGN WRITTEN ON 01/22/2022 4:03 PM BY MICHAEL GARCIA MD Systolic pressures have confirmed systole in 140 range diastolic readings are good. Is tolerating medications no change in therapy Assessment & Plan (04/26/2024 9:58 PM OIL RIG ROUGHNECK): >>ASSESSMENT AND PLAN FOR HTN (HYPERTENSION), BENIGN WRITTEN ON 05/22/2022 2:10 PM BY MICHAEL GARCIA MD Hypertension remains very well controlled patient is tolerating medications no change in therapy Assessment & Plan (04/26/2024 9:58 PM OIL RIG ROUGHNECK): >>ASSESSMENT AND PLAN FOR HTN (HYPERTENSION), BENIGN WRITTEN ON 06/26/2022 3:09 PM BY MICHAEL GARCIA MD Blood pressure remains well control no change in therapy Assessment & Plan (08/01/2023 5:47 PM CDT): Blood pressure remains well controlled patient has chronic renal disease and diabetes is also sees a route delivery driver no change in therapy Assessment & Plan (03/23/2023 4:34 PM OIL RIG ROUGHNECK): Blood pressure remains reasonably control no change in therapy Assessment & Plan (08/07/2022 3:35 PM CDT): Hypertension remains well controlled no change in therapy Assessment & Plan (12/11/2020 7:01 PM CDT): Blood pressure remains unchanged patient is tolerating medications no change in therapy. Assessment & Plan (05/25/2020 6:16 PM OIL RIG ROUGHNECK): Medication reviewed from his recent hospitalization no changes continue present therapy. Patient is asymptomatic with respect any symptoms referable to his hypertension. Assessment & Plan (04/20/2020 6:54 PM OIL RIG ROUGHNECK): Hypertension well control no change in therapy. Assessment & Plan (11/08/2019 5:43 PM CDT): Hypertension remains well control no change in therapy continue present medications.. Patient is tolerating medications. Assessment & Plan (08/13/2019 4:14 PM CDT): Hypertension remains well control no change in therapy Assessment & Plan (07/09/2019 12:55 PM OIL RIG ROUGHNECK): Hypertension well control no change in therapy patient is tolerating his medications he has no symptoms referable to his hypertension. Assessment & Plan (02/08/2019 6:17 PM CDT): Blood pressure remains well controlled patient is tolerating medications no change in therapy. Assessment & Plan (07/24/2018 4:32 PM CDT): Hypertension well control no change in therapy see this patient back in the next several months. Patient is tolerating medications. Assessment & Plan (04/27/2018 5:19 PM OIL RIG ROUGHNECK): Hypertension well controlled patient is tolerating medicines. Continue present therapy. Assessment & Plan (09/16/2017 10:49 AM CDT): Hypertension is unchanged. Continue current treatment regimen. Dietary sodium restriction. Weight loss. Continue current medications. Blood pressure will be reassessed at the next regular appointment. Type 2 diabetes mellitus without complication Assessment & Plan (01/10/2024 4:28 PM CDT): Hemoglobin HgbA1c noted route delivery driver no 12/31/2023 states his HgbA1c was 6.8. Patient's last HgbA1c in July was 7.0. He remains on Tradjenta 5 mg daily. Have end-stage renal disease which could be hypertension diabetic etiology is route delivery driver is not identified exact cause of his chronic renal failure. Given his HgbA1c I have no new recommendations on management of his diabetes. Hgb A1C Estim. Avg Glu (eAG) Latest Ref Rng 4.0 - 5.6 % mg/dL 04/18/2020 6.7 (H) 146 12/11/2020 6.9 (H) 151 09/14/2021 7.3 (H) 163 11/07/2022 6.7 (H) 146 08/01/2023 7.0 (H) 154 Legend: (H) High Assessment & Plan (08/01/2023 5:46 PM CDT): Diabetes been well controlled hemoglobin HgbA1c consistent less than 7 will update his HgbA1c today. Patient is a follow-up with his route delivery driver in November his GFR on last visit was 30 I will see this patient in December. Patient's advised make sure eye exam annual. Patient advised me that a senior sales representative or subcontractor from [employer] came to his home did blood test in his exam in his eyes this documentation is not in the chart I will look further into getting copies of this information Assessment & Plan (03/23/2023 4:34 PM OIL RIG ROUGHNECK): Patient is asymptomatic HgbA1c was 6.8 creatinine is 3.0 patient saw the route delivery driver in the last 2 months. Stable and has no complaints at this time. Patient remains on Tradjenta 5 mg daily. Patient's advised get annual eye exam. Spinal stenosis of lumbar region 06/24/2014 Overview (08/16/2016): Spinal stenosis of lumbar region Assessment & Plan (04/27/2018 5:05 PM OIL RIG ROUGHNECK): Is spinal stenosis managed by pain clinic. OA (osteoarthritis) 09/25/2013 Overview (11/26/2023): DJD (degenerative joint disease) Assessment & Plan (07/17/2024 6:38 PM OIL RIG ROUGHNECK): Osteoarthritis both knees reasonably managed at times with arthritis Tylenol. Assessment & Plan (09/14/2021 3:36 PM CDT): Bilateral osteoarthritis predominantly knees he has had a knee replacement no new changes. Assessment & Plan (05/14/2021 3:54 PM OIL RIG ROUGHNECK): Patient's osteoarthritis multiple joints his complaint of back pain on left side. It is his impression that back pain is related to the position he sleeps in when he leans to the right his left back will hurt L3-L5. Feels tight and tender. No other new problems. Patient start her on Naprosyn 500 mg twice a day for his knee pain hopefully this was help his back. Assessment & Plan (04/27/2018 5:02 PM OIL RIG ROUGHNECK): Arthritis both knees left worse than right secondary to injury. Patient's knee problems increasing in pain over the years come anticipate the surgical intervention in next few years. Osteoarthritis of left knee Assessment & Plan (08/07/2020 12:24 PM CDT): Patient reports far less pain in his knee left. Surgery approximately 3 months ago he is now wearing left foot elevated shoe allows is to have equal in thin is a high 8th of his legs. This is decreased pain in his legs as well as his hips he is not waddling anymore he still walks with a walker. Obesity Assessment & Plan (05/08/2024 3:17 PM OIL RIG ROUGHNECK): Chronic, improving. Down 4 lb in the last 2 months, BMI at 40.0. Continue heart healthy diet and exercise as encouraged. Assessment & Plan (11/07/2022 6:52 PM CDT): Patient's body mass index at this time is 34.47. His limited mobility secondary to his advanced arthritis both knees and hips. He walks with a walker Resolved Problems Problem Noted Date Diagnosed Date Resolved Date Angina pectoris 02/17/2024 04/26/2024 Assessment & Plan (02/22/2024 6:37 PM CDT): Patient has developed chest pain in the past month walking maybe a 4th of a block he has stopped predominantly because of tightness and pressure in his chest that goes away 100% of the time. He is also having some intermittent claudication. Patient has multiple health problems diabetes been reasonably controlled with hemoglobin HgbA1c 6.4-7.0 range for the last 3 years. 20+ years of hypertension 20+ years morbid obesity chronic renal failure for last 4 years. Patient once be considered for renal transplant. He is under the care of Dr. Aravind Robles and dialysis has been discussed that he will need within the next few months. Patient's EKG was normal blood pressure 134/78 pulse 88 respiration 18 271 lb and patient is in no distress. Patient was given prescription for isosorbide 30 mg once daily referred to cardiology. Internal hemorrhoid, bleeding 09/14/2021 05/22/2022 Overview (09/14/2021): Added automatically from request for surgery [id number] Rectal bleeding 07/05/2021 05/22/2022 Overview (07/05/2021): Added automatically from request for surgery [id number] Assessment & Plan (07/18/2021 3:59 PM OIL RIG ROUGHNECK): Likely from hemorrhoid bleeding. Will schedule colonoscopy for full evaluation and possible banding of the hemorrhoid the same time. Because of his constipation issue with 2 days colon preparation to be planned. Follow-up after the colonoscopy as needed Preoperative clearance 04/20/202007/31 Assessment & Plan (04/20/2020 6:58 PM OIL RIG ROUGHNECK): This patient has been in the care 20 years he has examine today and he is cleared for upcoming knee replacement. This clears does include the evaluation of his abdominal pain. Rupture of left quadriceps tendon 05/21/2019 04/12/2021 Assessment & Plan (05/21/2019 11:29 AM OIL RIG ROUGHNECK): Pt is here for a face to face for a walker. He has had left knee problems since 2004, and has hx of replacement and subsequent surgeries since. Most recently he was diagnosed with a left quadricep tendon rupture, with displacement of the femur and the patella as evidenced by films that were done at [facility] on 03/22/2019. He has since seen the orthopedist Dr. Nando Shirley with [facility] in [facility]. Pt reports that Dr. Shirley has told him that he can't do surgery for him until he has lost weight and his HgbA1c is 6. Pt is working towards that. In the meantime, he has a lot of problems getting around bc of the severe injury in his knee. He does wear a brace. He has tried using a cane, but states that his knee gives and then he falls, so he knows it is unsafe for him to be using the cane, which is why he is here to obtain a walker. Blood in stool 06/08/2018 07/24/2018 Overview (06/08/2018): Added automatically from request for surgery [id number] Erectile dysfunction 01/21/2018 019 Overview (01/21/2018): Added automatically from request for surgery [id number] Renal failure 04/11/2017 09/16/2017 Assessment & Plan (06/28/2017 5:00 PM OIL RIG ROUGHNECK): Patient creatinine is improved 1.9 1st week in May. and from a previous 2.69. In March will continue to monitor Assessment & Plan (04/11/2017 1:05 PM OIL RIG ROUGHNECK): Patient's creatinine is 2.69 with the GFR 29 this was on February 20, 2017 what patient is being followed for his recent prostate surgery. Patient has the history of hypertension over 15 years in diabetes approximately 5 years his diabetes has been well controlled. His metformin is discontinued. Repeat BMP today. Lymphocele 03/05/2017 04/27/2018 AP (abdominal pain) 02/18/2017 05/25/19 21 Assessment & Plan (04/20/2020 6:55 PM OIL RIG ROUGHNECK): This patient is scheduled for knee replacement on April 25, 2020. Yesterday he was at the orthopedic surgeon's office and advised the nurse practitioner he was having abdominal pain.. Appointment was scheduled for today he tells he has been having abdominal pain about 6 weeks. Because he has a lots of aches and pains all a time he did pay much attention to this.. Relates that dominant pain to high a sits and lies in certain position at home.. Patient has no nausea no vomiting no blood loss other than related to his hemorrhoids. She has had for a year longer bright red bleeding a episodically.. Exam he has pain right mid lighted just below his xiphoid process a very [place] precise area palpating. Pain is right over the rectus abdominal muscle approximately 3 in in length. No compression this is muscle skeletal pain not internal dominant pain. I see no restrictions on proceeding with his surgery . CBC was done hemoglobin is 12.8 Assessment & Plan (08/13/2019 4:10 PM CDT): Patient's abdominal pain right over the middle of his abdomen rectus abdominus muscle. Pain is worse with making certain motions advised me he sleeps curled he has more pain he sleeps straight now he has less pain. In no change in his bowels or bladder no nausea no vomiting heartburn . Pain level is 2 to 3/10.. Advised patient he can try binder this may help him with his discomfort I do not think this is a Sears problem I have no [place] other recommendations at this time. Urinary incontinence without sensory awareness 02/15/2017 04/26/2024 Assessment & Plan (02/15/2017 9:02 AM CDT): Urinary incontinence following prostate surgery. Prescriptions written for extra large pads dispense 200. Patient's tells me he is going to 8-10 pads per day. He has a follow-up visit with his urologist in a few weeks. Dyspnea on exertion 02/10/2017 08/13/19 20 Assessment & Plan (02/08/2019 6:14 PM CDT): Patient is not having significant dyspnea on exertion at this point continue treat his underlying hypertension Assessment & Plan (02/10/2017 2:20 PM CDT): Patient recently noted dyspnea on exertion walking 500 steps difficult because of shortness of breath. She does not have any proximal nocturia dyspnea patient wears CPAP this may be reason she does not experience this. Patient is cardiomegaly this increasing. Plans pro-bnp, echocardiogram. Urinary urgency 01/11/2017 04/26/2024 Blood in stool 12/28/2016 04/27/2018 Assessment & Plan (04/06/2018 3:07 PM OIL RIG ROUGHNECK): Last several months has noted rectal leakage and BRB mostly on the paper but sometimes in his diaper. No change in bms 2-3/d. Last colon 2014 with roids and polyp. Discussed probability that the blood is from the roids and also the leakage but will colonoscope to dx. Advised 2 T bran bid to increase fiber and congeal stools. Assessment & Plan (01/04/2017 2:27 PM CDT): Patient admitted to the hospital given 2 units of blood exact cause of bleeding have found he did have procedure of endoscopy and colonoscopy. He was taken off his NSAIDs. Patient is slightly symptomatic at this time respect shortness of breath with walking. At time of discharge his hemoglobin HgbA1c was 8.9. Patient is very clear he is greatly improved with respect is indigent shortness of breath compared to the time of admission. Patient is no longer having her bleeding. Assessment & Plan (12/28/2016 1:50 PM CDT): Patient called a concern about persistent blood in his stool for 3 days he is evaluated here in office sent to [facility] was admitted. His of his exam is clear was very and was symptomatic significant blood loss. Gout, unspecified 12/24/2016 04/26/2024 Assessment & Plan (01/10/2024 4:37 PM CDT): Patient's gout is well controlled with use of allopurinol daily Assessment & Plan (12/11/2020 7:01 PM CDT): Gout appears to be well control at this time. Assessment & Plan (04/27/2018 5:11 PM OIL RIG ROUGHNECK): Gout is stable no recent flare-ups. Assessment & Plan (09/16/2017 10:49 AM CDT): Reviewed with patient treatment for gout regarding chronic treatment/preventive treatment allopurinol, acute care treatment with NSAIDs and colchicine when needed. Notalgia 12/24/2016 04/27/2018 Dyslipidemia 11/27/2016 04/26/2024 Rupture of quadriceps tendon 11/23/2014 02/08/2019 Hemorrhoid 04/26/2024 Overview (04/18/2020): [facility] July 2019 Colon polyp 04/12/2021 Hyperparathyroidism 08/08/19 21 Sarcoidosis 04/12/2021 Encounters Date Type Department Care Team Description 08/23/2024 Telephone [facility] [address] [place] [address] Michael Garcia MD Medication Issue 08/06/2024 2:15 PM CDT Office Visit [facility] [address] [place] [phone] Mario Van MD Primary hypertension (Primary Dx) 07/15/2024 10:45 AM OIL RIG ROUGHNECK Office Visit [facility] [address] [place] [address] Michael Garcia MD Morbid obesity with BMI of 40.0-44.9, adult (HCC) (Primary Dx); Diabetic nephropathy associated with diabetes mellitus due to underlying condition (HCC); Dizziness; CKD (chronic kidney disease) stage 5, GFR less than 15 ml/min (HCC); Other secondary osteoarthritis of multiple sites 07/06/2024 Telephone [facility] [address] [place] [address] Michael Garcia MD 06/21/2024 Telephone [facility] at [address] [place] [address] Cristina Farr MA 06/21/2024 Telephone [facility] at [address] [place] [address] Mario Van MD from Last 3 Months Immunizations Immunization Administration Dates Next Due Influenza, Quadrivalent, Hig h Dose, Preservative Free, Intrr 02/06/2022,03/12/2021,02/10/2020 Influenza, Quadrivalent, Spl it, Intramuscular 12/10/2022 Influenza, Quadrivalent, Spl it, Preservative Free, Intradermal 06/12/2016 Influenza, Quadrivalent, Spl it, Preservative Free, Intramuscular 02/24/2018 Influenza, Trivalent, High D ose, Split, Preservative Free, Intramuscular 02/17/2024,06/11/2019 Influenza, Unspecified 02/10/2020,02/10/2020, Pneumococcal Conjugate PCV 13 02/04/2019 Pneumococcal Conjugate Pcv20 02/06/2022 Pneumococcal Polysaccharide PPV23 06/28/2015,03/2014 Sars-cov-2 Covid-19 Mrna, Bi valent, Original/omicron Ba.1 02/17/2024 Tdap 09/09/2017 ZOSTER Recombinant 02/07/2018,09/09/2017 Surgical History Surgery Date Site/Laterality Comments JOINT REPLACEMENT Left left KNEE SURGERY Left X 2 TONSILLECTOMY PROSTATECTOMY 05/12/2018 - 05/11/2019 POLYPECTOMY PENILE PROSTHESIS IMPLANT N/A COLONOSCOPY 07/10/2021 - 08/09/2021 COLONOSCOPY 06/25/2018 Medical History Medical History Date Comments Hypertension Hyperlipidemia GERD (gastroesophageal reflux disease) Prostate cancer (HCC) Type 2 diabetes mellitus (HCC) Gout Hemorrhoid [facility] July 2019 Nocturia more than twice per night Lumbar herniated disc Colon polyp Rupture of left quadriceps tendon 05/21/2019 Spinal stenosis of lumbar region 06/24/2014 Spinal stenosis of lumbar region Obesity Gait instability Osteoarthritis of left knee Chronic kidney disease Hyperparathyroidism Sarcoidosis 18 y/o Anesthesia Denies personal or family history of complications with anesthesia. End stage renal disease (HCC) 07/20/2024 Family History Medical History Relation Name Comments Kidney disease Father Heart disease Mother Hypertension Mother Relation Name Status Comments Father (Age late 60's) Mother (Age 60) Social History Tobacco Use Types Packs/Day Years Used Date Smoking Tobacco: Former Cigarettes Q uit: 02/12/2015 Smokeless Tobacco: Never Tobacco Cessation:Counseling Given: Not Answered Alcohol Use Standard Drinks/Week Comments Yes 3 (1 standard drink = 0.6 oz pur e alcohol) AUDIT-C Answer Date Recorded Q1: How often do you have a drink containing alc ohol? Monthly or less 09/16/2023 Q2: How many drinks containi ng alcohol do you have on a typical day when you are drinking? 1 or 2 09/16/2023 Q3: How often do you have si x or more drinks on one occasion? Never 09/16/2023 PHQ-2 Answer Date Recorded PHQ-2 Total Score (If total score is 3 or more points, staff should administer the PHQ-9) 1 01/09/2024 Personal Safety Answer Date Recorded Have you ever been in or are you currently in a harmful physical or emotional relationship or is someone making you feel afraid or unsafe? Denies 09/17/2023 Sex and Gender Information Value Date Recorded Sex Assigned at Not on file Legal Sex Male 1:54 AM OIL RIG ROUGHNECK Gender Identity Not on file Sexual Orientation Not on file Obstetrics History Last Filed Vital Signs Vital Sign Reading Time Taken Comments Blood Pressure 150/88 08/06/2024 1:56 PM CDT Pulse 79 08/06/2024 1:56 PM CDT Temperature 36.9 C (98.4 F) 07/15/2024 10:50 AM OIL RIG ROUGHNECK Respiratory Rate 18 08/06/2024 1:56 PM CDT Oxygen Saturation 97% 07/15/2024 10: 50 AM OIL RIG ROUGHNECK Inhaled Oxygen Concentration - - Weight 119.2 kg (262 lb 12.8 oz) 08/06/2024 1:56 PM CDT Height 174 cm (5' 8.5 ) 08/06/2024 1:56 PM CDT Body Mass Index 39.38 08/06/2024 1:56 PM CDT Plan of Treatment Health Maintenance Due Date Last Done Comments Dilated Eye Exam 1955 Foot Exam 11/08/2023 11/07/2022, 07/11, 02/04/2019, Additional history exists Hemoglobin A1C 02/01/2024 08/01/2023, 10/11, 09/14/2021, Additional history exists Covid-19 Vaccine (2023-06 5 season) 2024 02/17/2024, 03/11/2022, 03/24/2021, Additional history exists Depression Screening 01/08/2025 01/09/2024, 03/21/2023, 03/21/2023, Additional history exists Fall Risk Assessment 01/08/2025 01/09/2024, 11/07/2022, 10/12/2021, Additional history exists Well Visit 65+ 01/08/2025 01/09/2024, 10/11, 09/14/2021, Additional history exists Lipid Panel 01/14/2025 01/15/2024, 10/11, 09/14/2021, Additional history exists DTaP/Tdap/Td Vaccine (2 - Td or Tdap) 09/10/2027 09/09/2017 Colon Cancer Screening-Colonoscopy 09/16/2033 09/17/2023, 07/31/2021, 06/25/2018, Additional history exists Hepatitis C Screening Completed 08/09/2016 Zoster Vaccine Completed 02/07/2018, 09/09/2017 Abdominal Aortic Aneurysm (A AA) Screen Completed 07/21/2019, 02/18/2017, 01/27/2017, Additional history exists Prostate Cancer Screening-PSA Discontinued , 07/08/2017, 02/28/2017, Additional history exists Albumin Creatinine Ratio, Urine Discontinued 12/11/2020, 11/08/2019, 10/06/2018, Additional history exists Pneumococcal vaccine 65+ Completed 022, 02/04/2019, 06/28/2015, Additional history exists Colon Cancer Screening-CT Colonography Discontinued 09/17/2023, 10/12/2021, 07/31/2021, Additional history exists Colon Cancer Screening-DNA Stool Discontinued 09/17/2023, 10/12/2021, 07/31/2021, Additional history exists Colon Cancer Screening-FIT Discontinued 09/16, 10/12/2021, 07/31/2021, Additional history exists Colon Cancer Screening-Sigmoidoscopy Discontinued 09/17/2023, 10/12/2021, 07/31/2021, Additional history exists Influenza Vaccine Completed 02/17/2024, , 02/06/2022, Additional history exists eGFR Discontinued 04/20/2024, 10/2021, 12/11/2020, Additional history exists Hepatitis B Screening Discontinued Medical Devices Implanted Type Area Mate Fishing Vessel Device Identifier Shelf Expiration Date Model / Serial / Lot Coloplast Ana 15134 [employer] S[employer] Sling Urethral Male - [id number] Implanted:Qty: 1 on 02/23/2018 by Nguyễn Bautista MD at [facility] N/A: Urethra Coloplast Ana 04/09/2019 [id number] / / [id number] Coloplast [employer] 91-9480sc Titan Lock-Out Inflatable Self Contain Fluid Fill Tube Standard Latex Free - [id number] - [id number] Implanted:Qty: 1 on 02/23/2018 by Nguyễn Bautista MD at [facility] N/A: Penis Coloplast Ana 10/23/2022 [id number] / [id number] / Coloplast Ana [id number] Titan Coloplast Lock-Out Inflatable Self Contain Fluid Fill Valve Latex Free - [id number] - [id number] Implanted:Qty: 1 on 02/23/2018 by Nguyễn Bautista MD at [facility] Left: Groin Coloplast Ana 12/24/2022 [id number] / [id number] / Coloplast Ana [id number] Titan Coloplast Lock-Out 22cm Pump Set Inflatable Fluid Fill Soft Latex Free - [id number] - [id number] Implanted:Qty: 1 on 02/23/2018 by Nguyễn Bautista MD at [facility] N/A: Penis Coloplast Ana 10/24/2022 [id number] / [id number] / [employer] 1896-5032s 5mm 32.5mm Lock Full Thread Screw Bone Titanium Sterile T2 Nail - [id number] Implanted:Qty: 1 on 04/28/2020 by Nando Shirley MD at [facility] Left: Leg [employer] 01/09/2025 0948-5050 S / / [id number] [employer] 1896-5027s 5mm 27.5mm Lock Full Thread Screw Bone Titanium Sterile T2 Nail - [id number] Implanted:Qty: 1 on 04/28/2020 by Nando Shirley MD at [facility] Left: Leg [employer] 07/09/2022 3030-3925 S / / [id number] [employer] [id number] Osteosponge Allograft Chips Radiolucent Thk4-10mm Graft 30cc Bone - [id number] - [id number] Implanted:Qty: 1 on 04/28/2020 by Nando Shirley MD at [facility] Left: Knee [employer] 09/22/2024 [id number] / [id number] / [employer] [id number] Osteoselect Putty Syringe Graft 10ml Bone Demineralized Bone - [id number] - [id number] Implanted:Qty: 1 on 04/28/2020 by Nando Shirley MD at [facility] Left: Knee [employer] 12/29/2022 [id number] / [id number] / Nail 13mm 780mm Left T2 Im Ti Strl Arthrodesis - [id number] Implanted:Qty: 1 on 04/28/2020 by Nando Shirley MD at [facility] Left: Leg [employer] 07/09/2021 [id number] S / / [id number] [employer] 1896-5050s 5mm 50mm Lock Full Thread Screw Bone Titanium Sterile T2 Nail - [id number] Implanted:Qty: 1 on 04/28/2020 by Nando Shirley MD at [facility] Left: Leg [employer] 10/09/2024 1896- 5050 S / / [id number] [employer] 1896-5045s 5mm 45mm Lock Full Thread Screw Bone Titanium Sterile T2 Nail - [id number] Implanted:Qty: 1 on 04/28/2020 by Nando Shirley MD at [facility] Left: Leg [employer] 03/11/2024 7977-3792 S / / [id number] Explanted Type Area Mate Fishing Vessel Device Identifier Shelf Expiration Date Model / Serial / Lot [employer] 7650-9n 1/8in 3.5in Knee Flute Square Pin Fixation Stainless Steel - [id number] Explanted:Qty: 1 on 04/28/2020 at [facility] Left: Leg [employer] [id number] / / [employer] 1806-0050s Naresh T2 3mm 285mm Retrograde Supracondylar Wire Fixation - [id number] Explanted:Qty: 1 on 04/28/2020 by Nando Shirley MD at [facility] Left: Leg [employer] 08/10/2023 1806-0050S / / [id number] [employer] 1806-0050s Naresh T2 3mm 285mm Retrograde Supracondylar Wire Fixation - [id number] Explanted:Qty: 1 on 04/28/2020 by Nando Shirley MD at [facility] Left: Leg [employer] 07/10/2023 1806-0050S / / [id number] Procedures Procedure Name Priority Date/Time Associated Diagnosis Comments EGFR Routine 04/20/2024 12:34 PM OIL RIG ROUGHNECK HM LIPID PANEL Routine 01/15/2024 COLONOSCOPY 09/17/2023 8:30 AM CDT HEMOGLOBIN A1C Routine 08/01/2023 2:47 PM CDT Diabetes mellitus without complication (HCC) ALBUMIN CREATININE RATIO, URINE Routine 12/11/2020 10:50 AM CDT Diabetes mellitus without complication (HCC) PSA SCREEN Routine 11/08/2019 10:44 AM CDT Screening for prostate cancer US ABDOMINAL AORTIC ANEURYSM SCREENING Schedule Routine, Read Routine (OP Routine) 07/21/2019 10:00 AM CDT Screening for AAA (aortic abdominal aneurysm) HEPATITIS C ANTIBODY Routine 08/09/2016 9:57 AM CDT from Last 3 Months or Most Recently Relevant to Health Maintenance Results * (ABNORMAL) eGFR (04/20/2024 12:34 PM OIL RIG ROUGHNECK) eGFR 13(L) >=60 mL/min/1. 73 m2 Comment: Interpretive Data Reference Interval Normal >/= 90 mL/min/1.73m2 Mildly decreased* 60 - 89 mL/min/1.73m2 Mildly to moderately decreased 45 - 59 mL/min/1.73m2 Moderately to severely decreased 30 - 44 mL/min/1.73m2 Severely decreased 15 - 29 mL/min/1.73m2 Kidney Failure < 15 mL/min/1.73m2 *Relative to young adult level Estimated glomerular filtration rate is determined by the 2020 CKD-EPI equation recommended by the National Kidney Foundation (A Unifying Approach to GFR Estimation: Recommendations of the NKF-ASK Task Force on Reassessing the Inclusion of Race in Diagnosing Kidney Disease, JASN 2020). The CKD-EPI equation should not be used for patients with unstable renal function and has not been validated in children and those over 70. Current interpretive data was last reviewed 2021. Blood 04/20/2024 12:3 4 PM OIL RIG ROUGHNECK 04/20/2024 12:48 PM OIL RIG ROUGHNECK us Regan Robles MD LAB BLOOD ORDERABLES Final Re sult [id number]) 0 [facility] [place] [address] * LIPID PANEL (01/15/2024) SCRIBED Cholesterol, Total 167 [facility] SCRIBED Triglycerides 113 [facility] SCRIBED HDL 55 [facility] SCRIBED LDL 89 [facility] 01/15/2024 us Historical Provider HEALTH MAINTENANCE Final Result [facility] [address] [place] [address], [facility] [phone] * Colonoscopy (09/17/2023 8:30 AM CDT) Anatomical Region Laterality Modality Other Narrative Procedure Note Christian Rivas MD - 09/17/2023 8:30 AM CDT [facility] Patient Name: Ephraim Aldana Procedure Date: 09/17/2023 8:30 AM Date of : 1955 Admit Type: Outpatient Age: 68 Gender: Male Attending MD: Christian Rivas M.D. Room: [facility] ENDOSCOPY ROOM 1 Note Status: Finalized Patient Profile: This is a 68 year old male. Patient has recurrent episodes of bright red bleeding per rectum. In the past he has IRC treatment and banding ofhemorrhoids. Has chronic anemia Procedure: Colonoscopy Indications: Last colonoscopy: June 2018, Rectal bleeding,Iron deficiency anemia Referring MD: Michael Garcia M.D. Providers: Christian Rivas M.D. Impression: - Diverticulosis in the entire examined colon. - Internal hemorrhoids. Treated with thermaltherapy. - No specimens collected. Recommendation: - Repeat colonoscopy in 10 years for screening purposes. - Continue present medications. Repeat IRC orbanding of insert hemorrhoids if bleeding continued. Medicines: Monitored Anesthesia Care Complications: No immediate complications. Estimated Blood Loss: Estimated blood loss: none. Procedure: Pre-Anesthesia Assessment: - Prior to the procedure, a History and Physicalwas performed, and patient medications and allergieswere reviewed. The patient's tolerance of previous anesthesia was also reviewed. The risks andbenefits of the procedure and the sedation options and risks were discussed with the patient. All questions were answered, and informed consent was obtained. Prior Anticoagulants: The patient has taken noanticoagulant or antiplatelet agents. ASA Grade Assessment: III -A patient with severe systemic disease. Afterreviewing the risks and benefits, the patient was deemed in satisfactory condition to undergo the procedure. The benefits, risks and alternatives of theprocedure and sedation were discussed and informed consentwas obtained. All questions were answered. Please referto the signed informed consent document in the medical record. The bowel preparation used was Miralax via extended prep with split dose instruction. Thebowel preparation used was bisacodyl tablets via extended prep with split dose instruction. The scope waspassed under direct vision. The Pediatric Colonoscope PCF-[id number] was introduced through the anus and advanced to the the cecum, identified by appendiceal orifice and ileocecal valve. Thequality of the bowel preparation was good. Bowel prep was administered using a split dose. Findings: The perianal and digital rectal examinations were normal. The cecum was normal. Multiple medium-mouthed diverticula were found in the entire colon. Otherwise the colon was unremarkable. No polyps and no mass lesionsnoted Internal hemorrhoids were found during retroflexion. The hemorrhoids were small to medium. Scars from previous banding noted Coagulationto prevent future bleeding of internal hemorrhoids using IRC (Infrared Coagulation) was successful. Electronically signed by Christian Rivas M.D. Christian Rivas M.D. 09/17/2023 10:23:04 AM Number of Addenda: 0 Note Initiated On: 09/17/2023 8:30 AM Procedure Code(s): --- Professional --- 68864, Colonoscopy, flexible; diagnostic, including collection of specimen(s) by brushing or washing, when performed (separateprocedure) 36341, Destruction of internal hemorrhoid(s) by thermal energy (eg, infrared coagulation, cautery, radiofrequency) Diagnosis Code(s): --- Professional --- K64.8, Other hemorrhoids K62.5, Hemorrhage of anus and rectum D50.9, Iron deficiency anemia, unspecified K57.30, Diverticulosis of large intestine without perforation orabscess without bleeding CPT copyright 2020 [employer]. All rights reserved. The codes documented in this report are preliminary and upon braille coder reviewmay be revised to meet current compliance requirements. Recognized by the [employer] [employer] for promoting quality in endoscopy Christian Rivas MD ENDOSCOPY PROCEDURES Final Result * (ABNORMAL) Hemoglobin A1c (08/01/2023 2:47 PM CDT) Hgb A1C 7.0(H) 4.0 - 5.6 % Estimated Average Glucose 154 mg/dL [facility] CONTRERAS Comment: The ADA recommends reporting an estimated Average Glucose (eAG) with all Hemoglobin A1c results using the equation derived from a study of 507 normal and diabetic adults. Minority populations were underrepresented and children were not included. (Diabetes Care 31:6279-2604, 2008). The eAG is not equivalent to a fasting glucose. Blood 08/01/2023 2:47 PM CDT 08/01/2023 7:29 PM CDT Michael Garcia MD LAB BLOOD ORDERABLES Final Result Performing Organization Address [facility] Co de Phone Number CARLO [address] [address] [facility] [place] [address] * (ABNORMAL) Albumin Creatinine Ratio, Urine (12/11/2020 10:50 AM CDT) Albumin Ur 824.7 mg/L [facility] Comment: Interpretive Data No reference range established. Current interpretive data was last revised 2018. Creatinine Ur 109.6 mg/dL CARLO Comment: Interpretive Data No reference range established. Current interpretive data was last revised 2018. Albumin Creatinine Ratio, Ur 752(H) 1 - 29 mg/g CARLO Urine 12/11/2020 10:5 0 AM CDT 12/11/2020 4:56 PM CDT Michael Garcia MD LAB URINE ORDERABLES Final Result Performing Organization Address [facility] de Phone Number CARLO CONTRERAS [address] [address] [facility] [place] [address] * PSA screen (11/08/2019 10:44 AM CDT) PSA-Total 1.28 <=5.40 ng/mL CARLO Comment: Interpretive Data AGE SEX REFERENCE INTERVAL 0 minutes-150 years Female None 0 minutes-49 years Male None 50-59 years Male 0-3.90 60-69 years Male 0-5.40 70-79 years Male 0-6.20 80-150 years Male 0-6.20 Current interpretive data last revised 2018. Blood specimen (specimen) 11/08/2019 10:44 AM CDT 11/08/2019 7:09 PM CDT Michael Garcia MD LAB BLOOD ORDERABLES Final Result Performing Organization Address [facility] Co de Phone Number CARLO CONTRERAS [address] [address] Department [place] [address] * US Abdominal Aortic Aneurysm Screening (07/21/2019 10:00 AM CDT) Anatomical Region Laterality Modality Abdomen Ultrasound Narrative 07/21/2019 4:38 PM CDT Ultrasound of the abdominal aorta was performed. The superior, mid, and distal aorta measure 2.4 x 2.1 cm, 2.0 x 1.8 cm, and 1.7 x 1.4 cm in the transverse by AP dimensions respectively. Right and left common iliac arteries measure 1.1 x 1.2 cm and 1.1 x 1.4 cm in transverse by AP dimensions respectively. Incidental note made of cysts of the left inferior kidney measuring 3.6 x 3.1 x 3.5 cm and 2.5 x 2.1 x 3.0 cm in size respectively. Impression: No aortic aneurysm seen. Right and left iliac arteries are prominent measuring upwards of 1.2 and 1.4 cm greatest diameters respectively. Michael Garcia MD IMG US PROCEDURES Final Re sult * Hepatitis C antibody (08/09/2016 9:57 AM CDT) Pathologist [facility] SIGNAL TO CUT-OFF 0.05 <1.00 [facility] Comment: [facility] [address] [place] [address] Director: MICHAEL GONZALEZ DO,MPH Hep C Ab NON-REACT JUAN NON-REACT JUAN [facility]ORICAL RESULTS 08/09/2016 9:57 AM CDT Michael Garcia MD LAB MICROBIOLOGY - GENERAL ORDERABLES Final Result [facility]OR[facility] RESULTS from Last 3 Months or Most Recently Relevant to Health Maintenance Insurance IDPA [facility] AETNA MEDICARE MEDICARE [facility] Address: [address] [address] [place] [address] IDPA AETNA MEDICARE [employer]PA Advance Directives For more information, please contact: [phone] * Full Code (Latest Code Status on File) Date Activated Date Inactivated Comments 09/17/2023 8:36 AM 09/17/2023 3:04 PM * Full Code Date Activated Date Inactivated Comments 09/17/2023 8:36 AM 09/17/2023 8:36 AM * Full Code Date Activated Date Inactivated Comments 10/12/2021 10:21 AM 10/12/2021 4:41 PM * Full Code Date Activated Date Inactivated Comments 10/12/2021 10:21 AM 10/12/2021 10:21 AM * Full Code Date Activated Date Inactivated Comments 07/31/2021 11:12 AM 07/31/2021 6:06 PM Care Teams Can Stacker Relationship Specialty Start Date End Date Michael Garcia MD PCP - General 01/23/17 Michael Garcia MD 01/07/17 aNndo Shirley MD [address] [address] Consulting Physician Orthopedic Surgery 04/29/20 Regan Robles MD [address] [place] [address] Consulting Physician Nephrology 02/05/24
--- OUTSIDE RECORDS SUMMARY | 2024-09-13 12:38 | XMS_ITS | Encounter Summary ---
Author Organization [facility] Address [address] [place] [address] Phone Care Team Providers Care Elevator Operator Freight Name Role Phone Nguyễn Bautista MD Primary Care Provider Matthew Garcia MD Unavailable [phone] Matthew Garcia MD Primary Care Provider + [phone] Nguyễn Bautista MD Primary Care Provider Matthew Garcia MD Primary Care Provider + [phone] Nando Shirley MD Unavailable [phone] Regan Robles MD Unavailable [phone] Encounter Details Date Type Department Care Team (Late st Contact Info) Description 01/16/2017 Orders Only [facility] [address] [place] [address] Matthew Garcia MD [address] [place] [address] Social History Tobacco Use Types Packs/Day Years Used Date Smoking Tobacco: Former Smokeless Tobacco: Never Sex and Gender Information Value Date Recorded Sex Assigned at Not on file 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 Gender Identity Not on file Sexual Orientation Not on file documented as of this encounter Plan of Treatment Not on file documented as of this encounter Procedures Procedure Name Priority Date/Time Associated Diagnosis Comments SCAN - LABS 01/16/2017 4:04 PM CDT documented in this encounter Results * SCAN - LABS (01/16/2017 4:04 PM CDT) Matthew Garcia MD Final Resu lt documented in this encounter Visit Diagnoses Not on filedocumented in this encounter Care Teams Elevator Operator Freight Relationship Specialty Start Date End Date Nguyễ[place] [address] [facility] [address] [place] [address] PCP - General 01/07/17 01/16/17 [place] [address] [facility] [address] [place] [address] PCP - General 01/17/17 01/20/17 Nguy[place] [address] [facility] [address] [place] [address] PCP - General 01/21/17 01/22/17 [place] [address] [facility] [address] [place] [address] PCP - General 01/23/17 [place] [address] [facility] [address] [place] [address] 01/07/17 Nando Shirley MD [address] [facility] [address] [place] [address] Consulting Physician Orthopedic Surgery 04/29/20 Regan Robles MD [address] [place] [address] [address] [place] [address] Consulting Physician Nephrology 02/05/24 documented as of this encounter
--- OUTSIDE RECORDS SUMMARY | 2024-09-13 12:38 | XMS_ITS | Encounter Summary ---
Author Organization [facility] Address [address] [place] [address] Phone Care Team Providers Care Surveying Crew Stake Runner Name Role Phone Matthew Garcia MD Unavailable [phone] Matthew Garcia MD Primary Care Provider + [phone] Nguyễn Bautista MD Primary Care Provider Matthew Garcia MD Primary Care Provider + [phone] Nando Shirley MD Unavailable [phone] Regan Robles MD Unavailable [phone] Encounter Details Date Type Department Care Team (Late st Contact Info) Description 01/17/2017 Orders Only [facility] [address] [place] [address] Regan Wayne MD [address] [address] Social History Tobacco Use Types Packs/Day Years Used Date Smoking Tobacco: Former Smokeless Tobacco: Never Sex and Gender Information Value Date Recorded Sex Assigned at Not on file 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 Gender Identity Not on file Sexual Orientation Not on file documented as of this encounter Plan of Treatment Not on file documented as of this encounter Procedures Procedure Name Priority Date/Time Associated Diagnosis Comments SCAN - LABS 01/17/2017 1:47 PM CDT documented in this encounter Results * SCAN - LABS (01/17/2017 1:47 PM CDT) us Regan Wayne MD Final Result documented in this encounter Visit Diagnoses Not on filedocumented in this encounter Care Teams Surveying Crew Stake Runner Relationship Specialty Start Date End Date Matthew Garcia MD PCP - General 01/17/17 01/20/17 [place] [address] [facility] [address] [place] [address] PCP - General 01/21/17 01/22/17 Matthew Garcia MD PCP - General 01/23/17 Matthew Garcia MD 01/07/17 Nando Shirley MD [address] [facility] [address] [place] [address] Consulting Physician Orthopedic Surgery 04/29/20 Regan Robles MD [address] [place] [address] Consulting Physician Nephrology 02/05/24 documented as of this encounter
--- OUTSIDE RECORDS SUMMARY | 2024-09-13 12:38 | XMS_ITS | Clinical Summary ---
Author Organization [facility] Facility Address [address] [place] [id number] Care Team Providers Care Integration Consultant Name Role Phone Matthew Garcia MD Primary Care Provider [phone] Allergies No known active allergies Medications atorvastatin (LIPITOR) 40 MG tablet Take 1 tablet by mouth 1 (one) time each day Active HYDROcodone-acet aminophen (LORCET PLUS) 10-325 MG per tablet Take 1 tablet by mouth every 6 (six) hours if needed 9 Active metoprolol tartrate (LOPRESSOR) 100 MG tablet Take 100 mg by mouth 1 (one) time each day Active cyanocobalamin (VITAMIN B-12) 1000 MCG tablet Take 1,000 mcg by mouth 1 (one) time each day Active allopurinol (ZYLOPRIM) 300 MG tablet Take 300 mg by mouth 1 (one) time each day Active calcitriol (Rocaltrol) 0.25 MCG capsule Take 1 capsule (0.25 mcg total) by mouth 1 (one) time each day 90 capsule 3 3 Active isosorbide mononitrate (ISMO,MONOKET) 20 MG tablet Take 40 mg by mouth 1 (one) time each day Active linaGLIPtin (Tradjenta) 5 MG tablet Take 5 mg by mouth 1 (one) time each day Active tamsulosin (FLOMAX) 0.4 MG 24 hr capsule Take 2 capsules (0.8 mg total) by mouth 1 (one) time each day 90 capsule 3 5 Active Active Problems Problem Noted Date Diagnosed Date Anemia 02/22/2019 Essential hypertension 02/22/2019 Hyperparathyroidism due to renal insufficiency 1 Renal disorder due to type 2 diabetes mellitus 1 Resolved Problems Problem Noted Date Diagnosed Date Resolved Date Chronic kidney disease stage 3 02/22/2019 02/17/2023 Encounters Date Type Department Care Team Description 09/08/2024 Orders Only [facility] [address] [facility] [address] [place] [address] Patt Naylor RN 2024 10:00 AM [employer]NA[employer] Office Visit [facility] [address] [address] [facility] [address] [place] [id number] Regan Robles MD Stage 5 chronic kidney disease (HCC) (Primary Dx); Hypertension; Type 2 diabetes mellitus with diabetic nephropathy (HCC); Anemia in chronic kidney disease; Secondary hyperparathyroidism of renal origin (HCC); Hypertensive chronic kidney disease with stage 5 chronic kidney disease or end stage renal disease (HCC); Type 2 diabetes mellitus with diabetic chronic kidney disease (HCC) 06/22/2024 Documentation Only [facility] [address] [facility] [place] [address] Regan Robles MD from Last 3 Months Immunizations Immunization Administration Dates Next Due Influenza, Quadrivalent, Preservative Free 02/24 Pneumococcal Conjugate 13-Valent 02/04/2019 Pneumococcal Polysaccharide 06/28/2015 Tdap 09/09/2017 Family History Medical History Relation Comments Kidney disease Father Diabetes Sister Hypertension Sister Relation Status Comments Father Mother Sister Social History Tobacco Use Types Packs/Day Years Used Date Smoking Tobacco: Former Cigarettes Q uit: 11/05/2014 Smokeless Tobacco: Never Tobacco Cessation:Counseling Given: Not Answered Comments:Smoking History Info:Every day Alcohol Use Standard Drinks/Week Comments Yes 0 (1 standard drink = 0.6 oz pure alcohol) Alcoholic Drinks/day: Occasional social drink AUDIT-C Answer Date Recorded Frequency of Alcohol Consumption 2-4 times a fri03/25/2019 Average Number of Drinks 1 or 2 019 Frequency of Binge Drinking Never 03/12 Sex and Gender Information Value Date Recorded Sex Assigned at Not on file Legal Sex Male 6:10 PM EDT Gender Identity Not on file Sexual Orientation Not on file Last Filed Vital Signs Vital Sign Reading Time Taken Comments Blood Pressure 188/99 04/20/2024 11:55 AM [employer] Pulse 72 04/20/2024 11:55 AM [employer]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 [address] [facility] [address] [place] [id number] Regan Robles MD [address] [facility] [address] [place] [address] Health Maintenance Due Date Last Done Comments Colorectal Cancer Screening: Annual FOBT 2002 Colorectal Cancer Screening: Sigmoidoscopy 2002 Diabetes: Ophthalmology Exam 02/22/2019 Diabetes: Pedal Pulse Checked 02/22/2019 Diabetes: Sensory Foot Exam 02/22/2019 Diabetes: Visual Foot Exam 02/22/2019 Diabetes: Hemoglobin A1C 11/01/2023 024, 04/25/2023, 01/28/2023, Additional history exists Pneumococcal Vaccine: 50+ Years (4 of 4 - PCV20 or PCV21) 02/05/2024 02/04/2019, 06/28/2015, 10/20/2013 Colorectal Cancer Screening: Colonoscopy 09/16/2033 09/17/2023, 07/31/2021 Pneumococcal Vaccine: Peds (0 to 5 Years) and At-Risk Patients (6 to 49 Years) Discontinued 02/04/2019, 06/28/2015, 10/20/2013 Influenza Vaccine Completed 02/17/2024, , 02/10/2020, Additional history exists Hepatitis B Vaccine Aged Out No longe r eligible based on patient's age to complete this topic Procedures Procedure Name Priority Date/Time Associated Diagnosis Comments HEMOGLOBIN A1C Routine 04/25/2023 Type 2 diabetes mellitus with diabetic chronic kidney disease (HCC) from Last 3 Months or Most Recently Relevant to Health Maintenance Results * (ABNORMAL) Hemoglobin A1c (04/25/2023) Hemoglobin A1C 6.8(A) 4.0 - 6.0 PRINT /EXTERNAL (NON-INTERFACE D LABS) Blood (Blood, Venous) 04/25/2023 Regan Robles MD LAB BLOOD ORDERABLES Final Res ult PRINT/EXTERNAL (NON-INTERFACED LABS) from Last 3 Months or Most Recently Relevant to Health Maintenance Insurance Medicaid [place] [employer] MCR Adv PPO ([id number]) Care Teams Integration Consultant Relationship Specialty Start Date End Date Matthew Garcia MD [address], [address] [place] [address] PCP - General Internal Medicine 12/10/18
--- OUTSIDE RECORDS SUMMARY | 2024-09-13 12:38 | XMS_ITS ---
Author Organization [facility] [address] [address] Address [address] [place] [address] Phone Care Team Providers Care Pipe Organ Installer Name Role Phone Matthew Garcia MD Unavailable [phone] Matthew Garcia MD Primary Care Provider + [phone] Nando Shirley MD Unavailable [phone] Regan Robles MD Unavailable [phone] Active Problems Problem Noted Date Diagnosed Date End stage renal disease 07/20/2024 Dizziness 04/26/2024 Assessment & Plan (07/17/2024 6:35 PM PHOTOGRAPH EDITOR): Patient is admitted to [facility] in end of 13 May 2024 because of dizziness sustained approximately 3 days did see him on a follow-up visit his dizziness has resolved at this time no further testing indicated. Patient is so advised. Assessment & Plan (07/14/2024 4:41 PM PHOTOGRAPH EDITOR): Admitted to [facility] on 05/24/2024 intense dizziness patient is subsequently discharged on May 26, 2024 and went to extended Care for 2 days and discharge for home patient has a thorough evaluation including CT scans head cardiac monitoring exact etiology was found patient has known end-stage renal disease. Patient is awaiting renal transplant. Dialysis has been discussed with his music engineer Dr. Robles. The time of his visit on 06/03/2024 his symptoms dizziness have improved by least 80%. Medication reconciliation completed. Chronic health problems hypertension, hyperlipidemia, renal failure. Patient's diabetes excellent control for last 4 years. Hemoglobin 6.6-7.0 range consistently. Note for the visit of 06/03/2024 Assessment & Plan (05/08/2024 3:25 PM PHOTOGRAPH EDITOR): Acute, symptoms in the last 1-2 weeks. [...] for him. Plans get a 30 day night monitor. Patient's chronic renal failure diabetic. He is no significant chest pain or shortness with palpitations but they are aggravating to him Chronic left hip pain 05/22/2022 Assessment & Plan (05/22/2022 2:18 PM PHOTOGRAPH EDITOR): Patient advised me has significant left hip [...] 05/08/2020 Assessment & Plan (07/17/2024 6:36 PM PHOTOGRAPH EDITOR): End-stage renal disease patient has seen a vascular surgeon had the [facility] preparing for dialysis at this time all of his lab is done by Nephrology Dr. Robles. Assessment & Plan (06/14/2024 1:43 PM PHOTOGRAPH EDITOR): Considering patient utilizes both of his upper [...] steps. Assessment & Plan (05/08/2024 3:22 PM PHOTOGRAPH EDITOR): Chronic, stable. Co managed by Nephrology Baseline creatinine around 3.5, recent creatinine last week was up to 4.6. He is not on dialysis yet but has been discussing with his music engineer Dr. Robles. Continue hydrochlorothiazide and losartan as prescribed for now. We will continue to monitor Assessment & Plan (02/22/2024 6:39 PM CDT): Patient has end-stage renal disease stage IV. He is under care of Dr. Aravind Robles music engineer. Assessment & Plan (01/10/2024 4:26 PM CDT): [...] lab results pending ordered by Dr. Robles music engineer. Assessment & Plan (05/22/2022 2:11 PM PHOTOGRAPH EDITOR): Patient advised me that Dr. Robles his music engineer advised him in approximately 1 year he may need to start dialysis Assessment & Plan (09/14/2021 3:35 PM CDT): Update BMP/EGFR to monitor patient chronic renal failure status Assessment & Plan (04/12/2021 1:51 PM PHOTOGRAPH EDITOR): Patient under care of Dr. Aravind Robles he has had appointment the last 30 days I reviewed the notes patient is stable at this time. Patient has stage III chronic renal failure S/P total knee arthroplasty, left 05/08/2020 Left knee pain 03/13/2020 Overview (03/13/2020): Added automatically from request for surgery [id number] Medicare annual wellness visit, subsequent 02/10 Assessment & Plan (11/07/2022 6:49 PM CDT): History and physical completed patient's health risk assessment health maintenance reviewed in addressed. Seven components of patient's care gap are addressed. He is under care of music engineer therefore routine laboratory studies that I would do his part of his diabetes for his kidneys managed by his music engineer.. Assessment & Plan (09/14/2021 3:33 PM CDT): [...] (07/27/2019): Added automatically from request for surgery [id number] Assessment & Plan (08/01/2023 5:44 PM CDT): Patient continues to have bleeding hemorrhoids he is advised me he is scheduled for colonoscopy in September of 2023 Assessment & Plan (09/14/2021 3:34 PM CDT): Patient is under care of GI regarding his hemorrhoidal problem Assessment & Plan (05/15/2021 3:00 PM PHOTOGRAPH EDITOR): No hemorrhoids were seen on exam with [...] understanding. Assessment & Plan (04/12/2021 1:51 PM PHOTOGRAPH EDITOR): Hemorrhoids continues to be a problem he has seen Dr. Oscar mcgarry of news department intern and the infrared coagulation treatment has not been effective will refer to General surgery. Assessment & Plan (11/08/2019 5:42 PM CDT): Symptomatic hemorrhoids related to constipation patient given samples MiraLax stool softener. Diabetic nephropathy associa brea with type 2 diabetes mellitus 02/22/2019 Hyperparathyroidism due to renal insufficiency 1 History of colon polyps 06/08/2018 Overview (06/08/2018): Added automatically from request for surgery [id number] Morbid obesity with BMI of 40.0-44.9, adult 12/2017 Assessment & Plan (07/17/2024 6:38 PM PHOTOGRAPH EDITOR): Chronic problem unchanged BMI 40 past years [...] improving. Assessment & Plan (04/27/2018 5:04 PM PHOTOGRAPH EDITOR): Body mass index 42.13 the patient is [...] at this time advised patient take vitamin-D [id number]. No new recommendations Erectile dysfunction following radical prostatec lakeisha 04/11/2017 Assessment & Plan (04/11/2017 1:06 PM PHOTOGRAPH EDITOR): Patient requested Viagra, was given samples by his urologist tried 1 time it did not work. Patient is given samples of Viagra 100 milligrams he understands instructions on how to take. Chronic pain of right knee 03/10/2017 Assessment & Plan (05/14/2021 3:52 PM PHOTOGRAPH EDITOR): For the past 30 days he has [...] Friday Assessment & Plan (07/09/2019 12:57 PM PHOTOGRAPH EDITOR): Patient advised me that he so a [...] least 6 7 years ago related to workman's comp case. He advised me his insurance attorney of a total in contact his PCP regarding this. Patient x-ray returned showing he has a fractured patella a broken screw in the prosthesis. Patient is to contact his insurance attorney is any workman's comp a involvement which I seriously doubt. Otherwise refer this patient to Dr. Guzman . Assessment & Plan (04/27/2018 5:12 PM PHOTOGRAPH EDITOR): Chronic condition special left knee patient is wear knee brace permanently no change in status. Managed by Orthopedics. Drug-induced constipation 02/15/2017 Assessment & Plan (04/27/2018 5:12 PM PHOTOGRAPH EDITOR): Managed by pain clinic. Assessment & Plan (02/15/2017 9:41 AM CDT): Patient having some constipation status post recent surgery in medication. Given samples of Linzess 72 milligrams 1 tablet daily. He needs to additional medicines he will call me for a prescription. Hospital discharge follow-up 02/10/2017 Assessment & Plan (05/25/2020 6:15 PM PHOTOGRAPH EDITOR): Patient admitted to her [facility] had a total knee hardware of removed on 04/28/2020. Patient subsequently sent to a rehab at [facility]. Patient is doing well today blood [...] 12/24/2016 Assessment & Plan (04/26/2024 10:00 PM PHOTOGRAPH EDITOR): >>ASSESSMENT AND PLAN FOR DM (DIABETES MELLITUS) ([facility]) WRITTEN ON 11/09/2016 3:08 PM BY MATTHEW GARCIA MD Diabetes is unchanged. Continue current [...] 7.0 Assessment & Plan (04/26/2024 10:00 PM PHOTOGRAPH EDITOR): >>ASSESSMENT AND PLAN FOR DM (DIABETES MELLITUS) ([facility]) WRITTEN ON 04/11/2017 10:15 AM BY MATTHEW GARCIA MD . Patient's last HgbA1c was June 2016 was 6.6 plans at this time repeat hemoglobin HgbA1c today. Assessment & Plan (04/26/2024 10:00 PM PHOTOGRAPH EDITOR): >>ASSESSMENT AND PLAN FOR DM (DIABETES MELLITUS) ([facility]) WRITTEN ON 06/06/2017 11:12 AM BY MATTHEW GARCIA MD Patient's hemoglobin HgbA1c has changed from 6.4 a year ago to 7.2 the past 30 days however patient is anemic with a hemoglobin of 9.2. Will start januvia at this time recheck in 3 months. Metformin previous discontinued because of renal functions. Assessment & Plan (04/26/2024 10:00 PM PHOTOGRAPH EDITOR): >>ASSESSMENT AND PLAN FOR DM (DIABETES MELLITUS) ([facility]) WRITTEN ON 09/16/2017 10:50 AM BY MATTHEW GARCIA MD Diabetes is been pretty much under good control will get a repeat hemoglobin HgbA1c today. Assessment & Plan (04/26/2024 10:00 PM PHOTOGRAPH EDITOR): >>ASSESSMENT AND PLAN FOR DM (DIABETES MELLITUS) ([facility]) WRITTEN ON 04/27/2018 5:07 PM BY MATTHEW GARCIA MD Diabetes has been well controlled hemoglobin HgbA1c runs anywhere from 6.4-7.1 range no change in therapy at this time Assessment & Plan (04/26/2024 10:00 PM PHOTOGRAPH EDITOR): >>ASSESSMENT AND PLAN FOR DM (DIABETES MELLITUS) ([facility]) WRITTEN ON 07/24/2018 4:31 PM BY MATTHEW GARCIA MD Diabetes is unchanged. Continue current treatment regimen. Reminded to bring in blood sugar diary at next visit. Dietary recommendations for ADA diet. Regular aerobic exercise. Discussed ways to avoid symptomatic hypoglycemia. Discussed sick day management. Discussed foot care. Diabetes will be reassessed in 6 months. Assessment & Plan (04/26/2024 10:00 PM PHOTOGRAPH EDITOR): >>ASSESSMENT AND PLAN FOR DM (DIABETES MELLITUS) ([facility]) WRITTEN ON 10/06/2018 5:27 PM BY MATTHEW GARCIA MD Patient's last hemoglobin HgbA1c was 7.2. Will repeat HgbA1c today date of lipid profile and BMP. Patient has limited exercise given his restriction with his knees Assessment & Plan (04/26/2024 10:00 PM PHOTOGRAPH EDITOR): >>ASSESSMENT AND PLAN FOR DM (DIABETES MELLITUS) ([facility]) WRITTEN ON 02/08/2019 6:18 PM BY MATTHEW GARCIA MD Diabetes reasonably controlled hemoglobin HgbA1c [...] exam. Assessment & Plan (04/26/2024 10:00 PM PHOTOGRAPH EDITOR): >>ASSESSMENT AND PLAN FOR DM (DIABETES MELLITUS) ([facility]) WRITTEN ON 07/09/2019 12:54 PM BY MATTHEW GARCIA MD Patient's weight is down 16 lb from the last visit he has made dietary changes since May 12 he is no longer a eating candy drinking sodas. Anticipate his HgbA1c below be improved as well as lipid profile. Assessment & Plan (04/26/2024 10:00 PM PHOTOGRAPH EDITOR): >>ASSESSMENT AND PLAN FOR DM (DIABETES MELLITUS) ([facility]) WRITTEN ON 08/13/2019 4:13 PM BY MATTHEW GARCIA MD Patient's diabetes very well control HgbA1c is 6.9 % improvement from 7.8 approximately 10 months ago.. Patient is taking Actos/pioglitazone and tradjenta. 5mg/day. Repeat HgbA1c on next visit. Assessment & Plan (04/26/2024 10:00 PM PHOTOGRAPH EDITOR): >>ASSESSMENT AND PLAN FOR DM (DIABETES MELLITUS) ([facility]) WRITTEN ON 11/08/2019 5:42 PM BY MATTHEW GARCIA MD Last hemoglobin HgbA1c was 7.1 will get update today patient's low bit less active at this time because of knee pain. His findings standing patient's knee pain has been delayed because of his HgbA1c 6.5 . No polyuria polyphagia polydipsia. Will consider a SGOT 2 product if his HgbA1c does not returned closer to normal Assessment & Plan (04/26/2024 10:00 PM PHOTOGRAPH EDITOR): >>ASSESSMENT AND PLAN FOR DM (DIABETES MELLITUS) ([facility]) WRITTEN ON 02/11/2020 1:06 PM BY MATTHEW GARCIA MD Patient most HgbA1c was 6.6. Repeat HgbA1c in 4 months Assessment & Plan (04/26/2024 10:00 PM PHOTOGRAPH EDITOR): >>ASSESSMENT AND PLAN FOR DM (DIABETES MELLITUS) ([facility]) WRITTEN ON 04/20/2020 6:59 PM BY MATTHEW GARCIA MD Diabetes continues to be well controlled. Assessment & Plan (04/26/2024 10:00 PM PHOTOGRAPH EDITOR): >>ASSESSMENT AND PLAN FOR DM (DIABETES MELLITUS) ([facility]) WRITTEN ON 12/11/2020 7:00 PM BY MATTHEW GARCIA MD Patient feels well continues to check his glucose several times a week results been very good. Will update HgbA1c urine for microalbuminuria and BMP on today's visit. Patient made aware he needs to get eye exam once a year. Assessment & Plan (04/26/2024 10:00 PM PHOTOGRAPH EDITOR): >>ASSESSMENT AND PLAN FOR DM (DIABETES MELLITUS) ([facility]) WRITTEN ON 04/12/2021 1:48 PM BY MATTHEW GARCIA MD Tension well controlled patient recent HgbA1c at the music engineer's office results was 6.9. No change in therapy Assessment & Plan (04/26/2024 10:00 PM PHOTOGRAPH EDITOR): >>ASSESSMENT AND PLAN FOR DM (DIABETES MELLITUS) ([facility]) WRITTEN ON 01/22/2022 4:09 PM BY MATTHEW GARCIA MD Hemoglobin HgbA1c 7.3 patient has no polyuria polyphagia polydipsia. Will continue present therapy. Reviewed patient's glucometer readings. Recheck HgbA1c Assessment & Plan (04/26/2024 10:00 PM PHOTOGRAPH EDITOR): >>ASSESSMENT AND PLAN FOR DM (DIABETES MELLITUS) ([facility]) WRITTEN ON 08/07/2022 3:41 PM BY MATTHEW GARCIA MD Patient did not tolerate Toujeo at 1.5 mg once a week I am going to resume Tradjenta management of his diabetes the Tradjenta his HgbA1c was 7.15 April 2022. Patient's chronic renal failure he just had lab [facility] [place] in [facility] in the past 5 days requested release of records from there. Patient will be seen in music engineer next few days. Like to maximize medications [...] High Assessment & Plan (04/26/2024 10:00 PM PHOTOGRAPH EDITOR): >>ASSESSMENT AND PLAN FOR TYPE 2 DIABETES MELLITUS WITH RENAL COMPLICATION ([facility]) WRITTEN ON 06/26/2022 3:11 PM BY MATTHEW GARCIA MD Patient was given Trulicity on [...] ([facility]CC) WRITTEN ON 06/26/2022 3:10 PM BY MATTHEW GARCIA MD Patient was given Trulicity on [...] 7.3 Assessment & Plan (05/22/2022 2:11 PM PHOTOGRAPH EDITOR): Patient's HgbA1c is 7.5 minute discontinue Tradjenta [...] use 11/27/2016 Overview (11/26/2023): Has been on Gladys for about the past 2 years for [...] with intermediate recurrence risk, stage T2B-C or Zenia 7 or prostate-specific antigen (PSA) 10-20 11/09/2016 Assessment & Plan (11/09/2016 3:02 PM CDT): Patient recently had a biopsy showing prostate cancer. Schedule have surgery in about 2-3 weeks he will be treated through [facility] Grade III hemorrhoids 11/09/2016 Assessment & Plan (07/27/2019 1:20 PM CDT): III roids. Discussed options of conservative treatment, IRC, surgery. He desires IRC so will set it up Assessment & Plan (07/09/2019 12:55 PM PHOTOGRAPH EDITOR): Patient continues to have bleeding hemorrhoids he states he will get back in contact with the news department intern possibly have a procedure done this solve this problem. Assessment & Plan (04/30/2019 3:37 PM PHOTOGRAPH EDITOR): Bleeding [id number] prolapse and reviewed recent colonoscopy. Discussed anusol HC, IRC, surgery. He wants to try the anusol first. His Left knee need reconstruction and I warned of the opiod induced [id number] so he is aware of need of combating that post op. He to see the surgeon at [facility] next week. He will call to try [...] 06/28/2015 Assessment & Plan (05/08/2024 3:17 PM PHOTOGRAPH EDITOR): Chronic, uncontrolled. See HPI for details, cardiology [...] encouraged. Assessment & Plan (04/26/2024 9:58 PM PHOTOGRAPH EDITOR): >>ASSESSMENT AND PLAN FOR HTN (HYPERTENSION), BENIGN WRITTEN ON 08/07/2020 12:18 PM BY MATTHEW GARCIA MD Slight elevation blood pressure today. Patient just completed physical therapy is doing well. No change in therapy at this time see him back in 4 months. Patient has gained 10 lb since his last visit he plans to do better in manage his diet. Assessment & Plan (04/26/2024 9:58 PM PHOTOGRAPH EDITOR): >>ASSESSMENT AND PLAN FOR HTN (HYPERTENSION), BENIGN WRITTEN ON 04/12/2021 1:49 PM BY MATTHEW GARCIA MD Hypertension well controlled patient is tolerating medications. Us with patient trying may do better at controlling weight. Assessment & Plan (04/26/2024 9:58 PM PHOTOGRAPH EDITOR): >>ASSESSMENT AND PLAN FOR HTN (HYPERTENSION), BENIGN WRITTEN ON 01/22/2022 4:03 PM BY MATTHEW GARCIA MD Systolic pressures have confirmed systole in 140 range diastolic readings are good. Is tolerating medications no change in therapy Assessment & Plan (04/26/2024 9:58 PM PHOTOGRAPH EDITOR): >>ASSESSMENT AND PLAN FOR HTN (HYPERTENSION), BENIGN WRITTEN ON 05/22/2022 2:10 PM BY MATTHEW GARCIA MD Hypertension remains very well controlled patient is tolerating medications no change in therapy Assessment & Plan (04/26/2024 9:58 PM PHOTOGRAPH EDITOR): >>ASSESSMENT AND PLAN FOR HTN (HYPERTENSION), BENIGN WRITTEN ON 06/26/2022 3:09 PM BY MATTHEW GARCIA MD Blood pressure remains well control no change in therapy Assessment & Plan (08/01/2023 5:47 PM CDT): Blood pressure remains well controlled patient has chronic renal disease and diabetes is also sees a music engineer no change in therapy Assessment & Plan (03/23/2023 4:34 PM PHOTOGRAPH EDITOR): Blood pressure remains reasonably control no change in therapy Assessment & Plan (08/07/2022 3:35 PM CDT): Hypertension remains well controlled no change in therapy Assessment & Plan (12/11/2020 7:01 PM CDT): Blood pressure remains unchanged patient is tolerating medications no change in therapy. Assessment & Plan (05/25/2020 6:16 PM PHOTOGRAPH EDITOR): Medication reviewed from his recent hospitalization no changes continue present therapy. Patient is asymptomatic with respect any symptoms referable to his hypertension. Assessment & Plan (04/20/2020 6:54 PM PHOTOGRAPH EDITOR): Hypertension well control no change in therapy. Assessment & Plan (11/08/2019 5:43 PM CDT): Hypertension remains well control no change in therapy continue present medications.. Patient is tolerating medications. Assessment & Plan (08/13/2019 4:14 PM CDT): Hypertension remains well control no change in therapy Assessment & Plan (07/09/2019 12:55 PM PHOTOGRAPH EDITOR): Hypertension well control no change in therapy [...] medications. Assessment & Plan (04/27/2018 5:19 PM PHOTOGRAPH EDITOR): Hypertension well controlled patient is tolerating medicines. Continue present therapy. Assessment & Plan (09/16/2017 10:49 AM CDT): Hypertension is unchanged. Continue current treatment regimen. Dietary sodium restriction. Weight loss. Continue current medications. Blood pressure will be reassessed at the next regular appointment. Type 2 diabetes mellitus without complication Assessment & Plan (01/10/2024 4:28 PM CDT): Hemoglobin HgbA1c noted music engineer no 12/31/2023 states his HgbA1c was 6.8. Patient's last HgbA1c in July was 7.0. He remains on Tradjenta 5 mg daily. Have end-stage renal disease which could be hypertension diabetic etiology is music engineer is not identified exact cause of his [...] today. Patient is a follow-up with his music engineer in November his GFR on last visit was 30 I will see this patient in December. Patient's advised make sure eye exam annual. Patient advised me that a manufacturers service representative or subcontractor from [employer] came to his home did blood test in his exam in his eyes this documentation is not in the chart I will look further into getting copies of this information Assessment & Plan (03/23/2023 4:34 PM PHOTOGRAPH EDITOR): Patient is asymptomatic HgbA1c was 6.8 creatinine is 3.0 patient saw the music engineer in the last 2 months. Stable and has no complaints at this time. Patient remains on Tradjenta 5 mg daily. Patient's advised get annual eye exam. Spinal stenosis of lumbar region 06/24/2014 Overview (08/16/2016): Spinal stenosis of lumbar region Assessment & Plan (04/27/2018 5:05 PM PHOTOGRAPH EDITOR): Is spinal stenosis managed by pain clinic. OA (osteoarthritis) 09/25/2013 Overview (11/26/2023): DJD (degenerative joint disease) Assessment & Plan (07/17/2024 6:38 PM PHOTOGRAPH EDITOR): Osteoarthritis both knees reasonably managed at times with arthritis Tylenol. Assessment & Plan (09/14/2021 3:36 PM CDT): Bilateral osteoarthritis predominantly knees he has had a knee replacement no new changes. Assessment & Plan (05/14/2021 3:54 PM PHOTOGRAPH EDITOR): Patient's osteoarthritis multiple joints his complaint of [...] back. Assessment & Plan (04/27/2018 5:02 PM PHOTOGRAPH EDITOR): Arthritis both knees left worse than right [...] Obesity Assessment & Plan (05/08/2024 3:17 PM PHOTOGRAPH EDITOR): Chronic, improving. Down 4 lb in the last 2 months, BMI at 40.0. Continue heart healthy diet and exercise as encouraged. Assessment & Plan (11/07/2022 6:52 PM CDT): Patient's body mass index at this time is 34.47. His limited mobility secondary to his advanced arthritis both knees and hips. He walks with a walker Current Treatment and Therapy Plans No current plan information found. Past Treatment and Therapy Plans No past plan information found. Lifetime Dose Tracking * Chemical Lifetime Dose Automatic Entry Manual Entr y Fluoro Time 4.017 minutes 4.017 minutes 0 minutes Air kerma at the reference point (Ka,r) 38.86 mGy 3 8.86 mGy 0 mGy Resolved Problems Problem Noted Date Diagnosed Date [...] (09/14/2021): Added automatically from request for surgery [id number] Rectal bleeding 07/05/2021 05/22/2022 Overview (07/05/2021): Added automatically from request for surgery [id number] Assessment & Plan (07/18/2021 3:59 PM PHOTOGRAPH EDITOR): Likely from hemorrhoid bleeding. Will schedule colonoscopy for full evaluation and possible banding of the hemorrhoid the same time. Because of his constipation issue with 2 days colon preparation to be planned. Follow-up after the colonoscopy as needed Preoperative clearance 04/20/202007/31 Assessment & Plan (04/20/2020 6:58 PM PHOTOGRAPH EDITOR): This patient has been in the care 20 years he has examine today and he is cleared for upcoming knee replacement. This clears does include the evaluation of his abdominal pain. Rupture of left quadriceps tendon 05/21/2019 04/12/2021 Assessment & Plan (05/21/2019 11:29 AM PHOTOGRAPH EDITOR): Pt is here for a face to face for a walker. He has had left knee problems since 2004, and has hx of replacement and subsequent surgeries since. Most recently he was diagnosed with a left quadricep tendon rupture, with displacement of the femur and the patella as evidenced by films that were done at [facility] on 03/22/2019. He has since seen the orthopedist Dr. Nando Shirley with [facility]. Pt reports that Dr. Shirley has told [...] (06/08/2018): Added automatically from request for surgery [id number] Erectile dysfunction 01/21/2018 019 Overview (01/21/2018): Added automatically from request for surgery [id number] Renal failure 04/11/2017 09/16/2017 Assessment & Plan (06/28/2017 5:00 PM PHOTOGRAPH EDITOR): Patient creatinine is improved 1.9 1st week in May. and from a previous 2.69. In March will continue to monitor Assessment & Plan (04/11/2017 1:05 PM PHOTOGRAPH EDITOR): Patient's creatinine is 2.69 with the GFR [...] 21 Assessment & Plan (04/20/2020 6:55 PM PHOTOGRAPH EDITOR): This patient is scheduled for knee replacement [...] is a [employer] problem I have no [employer] other recommendations at this time. Urinary incontinence [...] 04/27/2018 Assessment & Plan (04/06/2018 3:07 PM PHOTOGRAPH EDITOR): Last several months has noted rectal leakage and BRB mostly on the paper but sometimes in his diaper. No change in bms 2-3/d. Last colon 2013 with roids and polyp. Discussed probability that [...] is evaluated here in office sent to [facility] was admitted. His of his exam is clear was very and was symptomatic significant blood loss. Gout, unspecified 12/24/2016 04/26/2024 Assessment & Plan (01/10/2024 4:37 PM CDT): Patient's gout is well controlled with use of allopurinol daily Assessment & Plan (12/11/2020 7:01 PM CDT): Gout appears to be well control at this time. Assessment & Plan (04/27/2018 5:11 PM PHOTOGRAPH EDITOR): Gout is stable no recent flare-ups. Assessment & Plan (09/16/2017 10:49 AM CDT): Reviewed with patient treatment for gout regarding chronic treatment/preventive treatment allopurinol, acute care treatment with NSAIDs and colchicine when needed. Notalgia 12/24/2016 04/27/2018 Dyslipidemia 11/27/2016 04/26/2024 Rupture of quadriceps tendon 11/23/2014 02/08/2019 Hemorrhoid 04/26/2024 Overview (04/18/2020): IR July 2019 Colon polyp 04/12/2021 Hyperparathyroidism 08/08/19 21 Sarcoidosis 04/12/2021
--- OUTSIDE RECORDS SUMMARY | 2024-09-13 12:38 | XMS_ITS | Clinical Summary ---
Author Organization [facility] Address [address] [place] [address] Care Team Providers Care Licensed Psychologist Director Name Role Phone Matthew Garcia MD Primary Care Provider [phone] Source Comments [facility],non-christian hospital Affiliates and Associated Physician Practices is amultiple site organization consisting of ambulatory clinics and hospital sitesin [place], [place], [place] and [place]. This disclosure is being madepursuant to the Care Everywhere program and may not contain all information available regarding this patient. Last updated 18.[facility] Allergies No known active allergies Encounters Date Type Department Care Team Description 07/28/2024 Telephone [facility] [address] [place] [address] Angelica Padron RN Kidney Transplant Evaluation 07/27/2024 Telephone [facility] [address] [place] [phone] Angelica Padron RN Kidney Transplant Evaluation 06/25/2024 Telephone [facility] [address] [place] [address] Angelica Padron RN Kidney Transplant Evaluation (Health history ) 06/21/2024 Telephone [facility] [address] [place] [address] Angelica Padron, RN Kidney Transplant Evaluation from Last 3 Months Immunizations Immunization Administration Dates Next Due FLU VACCINE QUAD IIV4 PF ID 06/12/2016 TDAP (7yrs+) 09/09/2017 Family History Medical History Relation Name Comments None Known Brother CAD (Coronary Artery Disease) Father Renal Disease Father was on dialysi s Hypertension Mother Cancer Sister 1 Diabetes - Type 2 Sister 1 None Known Sister 2 Relation Name Status Comments Brother Alive Father Mother Sister 1 Alive Sister 2 Alive Social History Tobacco Use Types Packs/Day Years Used Date Smoking Tobacco: Former Cigarettes Smokeless Tobacco: Never Tobacco Cessation:Counseling Given: Not Answered Comments:Smoked off and on from age 28 until 2018 (but hadn't smoked for 25 of those in between years) Alcohol Use Standard Drinks/Week Comments Yes 0 (1 standard drink = 0.6 oz pur e alcohol) 2 beers in the last 3 months Sex and Gender Information Value Date Recorded Sex Assigned at Not on file 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 Gender Identity Not on file Sexual Orientation Not on file Plan of Treatment Health Maintenance Due Date Last Done Comments COLOGUARD (AGES 45-75) - COLON CA SCREENING [address] COLONOGRAPHY - COLON CA SCREENING 1955 FIT - COLON CA SCREENING 1955 FLEX SIG - COLON CA SCREENING 1955 HEPATITIS C SCREENING 07/08/1971 PNEUMOCOCCAL VACCINE 50+ (1 of 1 - PCV) 07/13/2003 ZOSTER VACCINE (1 of 2) 07/13/2003 COVID-19 VACCINE (2 - 2023- season) 2024 06/16/2020 DEPRESSION SCREENING 05/12/2024 MEDICARE AWV CALENDAR YEAR 2024 DTAP/TDAP/TD VACCINES (2 - Td or Tdap) 09/10/2027 09/09/2017 LIPID TESTING 11/08/2027 11/07/2022, 05/09/2020 Respiratory Syncytial Virus (RSV) Vaccine Pt: or over 60 yrs (1 - 1-dose 75+ series) 2028 COLONOSCOPY - COLON CA SCREENING 09/16/2033 09/17/2023 Colorectal Cancer Screening 09/16/2033 AAA SCREENING Completed 07/21/2019, 07/21/2019 INFLUENZA VACCINE Completed 02/17/2024, , 02/10/2020, Additional history exists HEPATITIS B VACCINE Aged Out No longe r eligible based on patient's age to complete this topic HIB VACCINE Aged Out No longer eligi ble based on patient's age to complete this topic HPV VACCINE Aged Out No longer eligi ble based on patient's age to complete this topic MENINGOCOCCAL (Group B) VACCINE SHARED DECISION-MAKING Aged Out No longer eligible based on patient's age to complete this topic MENINGOCOCCAL GROUPS A/C/Y/W VACCINE Aged Out No longer eligible based on patient's age to complete this topic Insurance MEDICAID - [place] AETNA MEDICARE ADV Care Teams Licensed Psychologist Director Relationship Specialty Start Date End Date Matthew Garcia MD PCP - General 06/12/16
--- OUTSIDE RECORDS SUMMARY | 2024-09-13 12:38 | XMS_ITS | Encounter Summary ---
Author Organization [facility] Address [address] [place] [address] Phone Care Team Providers Care Thread Marker Name Role Phone Matthew Garcia MD Primary Care Provider [phone] Encounter Details Date Type Department Care Team (Late Contact Info) Description 09/08/2024 Orders Only [facility] [address] [place] [address] Patt Naylor, RN [address] [place] [address] Social History Tobacco Use Types Packs/Day Years Used Date Smoking Tobacco: Former Cigarettes Q uit: 11/05/2014 Smokeless Tobacco: Never Comments:Smoking History Inf o:Every day Alcohol Use Standard Drinks/Week Comments Yes [...] as of this encounter Plan of Treatment Upcoming Encounters Date Type Department Care Team (Late Contact Info) Description 09/14/2024 10:45 AM CDT Office Visit [facility] [address] [place] [address] Regan Robles MD [address] [place] [address] documented as of this encounter Visit Diagnoses Not on filedocumented in this encounter Care Teams Thread Marker Relationship Specialty Start Date End Date Matthew Garcia MD [email or web address] [place] [address] PCP - General Internal Medicine 12/10/18 documented as of this encounter
--- OUTSIDE RECORDS SUMMARY | 2024-09-13 12:38 | XMS_ITS | Clinical Summary ---
Author Organization [facility] Address [address] [place] [address] Phone Care Team Providers Care Livestock Judging Coach Name Role Phone Matthew Garcia MD Primary Care Provider Lobo Herrmann MD Unavailable [phone] Yvan Christensen MD Unavailable [phone] Allergies No known active allergies Medications pravastatin (PRAVACHOL) 40 MG Tablet Take 40 mg by mouth daily. Active metoprolol Succinate (TOPROL-XL) 50 MG TABLET SR 24 HR TAKE 1 AND 1/2 TABLETS BY MOUTH DAILY 06/18/2017 Active COLCRYS 0.6 MG Tablet 0 12/02/2017 Active ULORIC 40 MG Tablet 0 01/04/2018 Active glimepiride (AMARYL) 1 MG Tablet 0 12/05/2017 Active hydroCHLOROthia zide 25 MG Tablet TAKE 1 TABLET BY MOUTH EVERY DAY 03/13/2017 Active Active Problems Problem Noted Date Diagnosed Date Acute lower gastrointestinal bleeding 12/27/2016 DIMAS (acute kidney injury) 12/27/2016 Acute blood loss anemia 12/27/2016 Cancer of prostate with inte rmediate recurrence risk, stage T2B-C or [place] 7 or or prostate-specific antigen (PSA) 10-20 11/27/2016 Cancer Staging:Clinical stage from 11/27/2016:Stage IIA(T1c, N0, M0, PSA: 10 to 19, [place] 7) - Signed by Yvan Christensen MD on 11/27/2016 Morbid obesity with BMI of 40.0-44.9, adult 11/09 Impaired gait and mobility 11/27/2016 Chronic midline low back pain with left-sided sc iatica 11/27/2016 Dyslipidemia 11/27/2016 History of gout 11/27/2016 Chronic narcotic use 11/27/2016 Overview (11/27/2016): Has been on [place] for about the past 2 years for chronic low back pain. Uses brace 11/27/2016 Overview (11/27/2016): Left knee. Use of cane as ambulatory aid 11/27/2016 History of acute bronchitis 11/27/2016 Overview (11/27/2016): Hospitalized at [facility] 06/25/2015 through 06/28/2015. Tobacco abuse, in remission 11/27/2016 Overview (11/27/2016): Stop smoking cigarettes October 2015. Total of 15 pack year history. He initially smoked 1 pack per day for 10 years then quit for 20 years and then resume 1 pack per day for another 5 years and then quit October 2015. HTN (hypertension) 06/28/2015 Type 2 diabetes mellitus without complication Resolved Problems Problem Noted Date Diagnosed Date Resolved Date Acute bronchitis 06/28/2015 11/27/2016 Immunizations Immunization Administration Dates Next Due Covid-19, Mrna, Lnp-s, PF, 1 00 mcg/0.5 mL Dose (Moderna) 06/16/2020 Pneumococcal Vaccine Adult - 23 Valent 6 Family History Medical History Relation Name Comments Kidney Disease Father Cancer Sister Breast Relation Name Status Comments Father Mother Sister Social History Tobacco Use Types Packs/Day Years Used Date Smoking Tobacco: Former Cigarettes 1 15 0 10/16/2000 - 10/17/2015 Smokeless Tobacco: Never Tobacco Cessation:Counseling Given: No Alcohol Use Standard Drinks/Week Comments Yes 0 (1 standard drink = 0.6 oz pure alcohol) Occasionally. Never heay/regular drinker. Sexually Active Control Partners Comments Yes Female Sex and Gender Information Value Date Recorded Sex Assigned at Not on file Legal Sex Male 10:39 PM CDT Gender Identity Not on file Sexual Orientation Not on file Last Filed Vital Signs Vital Sign Reading Time Taken Comments Blood Pressure 130/82 01/19/2018 10:55 AM CDT Pulse 80 01/19/2018 10:55 AM CDT Temperature 35.7 C (96.2 F) 01/19/2018 10:55 AM CDT Respiratory Rate 18 01/19/2018 10:55 AM CDT Oxygen Saturation 95% 01/19/2018 10:55 AM CDT Inhaled Oxygen Concentration - - Weight 133 kg (293 lb 3.2 oz) 01/19/2018 10:55 A M CDT Height 180.3 cm (5' 11 ) 01/19/2018 10:55 AM CDT Body Mass Index 40.89 01/19/2018 10:55 AM CDT Plan of Treatment Health Maintenance Due Date Last Done Comments Diabetes: Eye Exam 1955 Diabetes: Foot Exam 1955 Hepatitis C Virus (HCV) Screening 1955 Cologuard 07/13/2003 Immunochemical Fecal Occult Blood 07/13/2003 Diabetes: Nephropathy Screening 01/27/2018 01/27/2017, 12/28/2016, 12/27/2016, Additional history exists Zoster Immunization (2 of 2) 04/04/2018 02/07/2018 Diabetes: Hemoglobin A1c 06/18/2018 018, 12/27/2016, 06/26/2015 Pneumococcal Immunization (50+ years) (3 of 3 - PPSV23, PCV20 or PCV21) 06/28/2020 02/04/2019, 06/28/2015 Influenza Immunization (#1) 2024 10/0 05/2019, 06/11/2019, 06/12/2016 SARS-COV-2 Immunization ( season) 2024 03/24/2021, 07/14/2020, 06/16/2020 Colonoscopy 12/30/2026 12/30/2016 Colorectal Cancer Screening 12/30/2026 Respiratory Syncytial Virus (RSV) Immunization (Adult) (1 - 1-dose 75+ series) 2028 12/30/2016 PSA Discussion Discontinued 08/29/2016 DTaP/Tdap/Td Immunization Discontinued 09/09/2017 TdaP Immunization Completed 09/09/2017 Pneumococcal Immunization Combined Discontinued 02/04/2019, 06/28/2015 Hepatitis B Immunization Aged Out No longer eligible based on patient's age to complete this topic Meningococcal Immunization (ACWY) Aged Out No longer eligible based on patient's age to complete this topic Rotavirus Immunization Aged Out No lo nger eligible based on patient's age to complete this topic Procedures Procedure Name Priority Date/Time Associated Diagnosis Comments CMP (COMPREHENSIVE METABOLIC PANEL) STAT 01/27/2017 10:33 PM CDT HEMOGLOBIN A1C W/ ESTIMATED GLUCOSE Routine 12/27/2016 3:05 PM CDT PSA SCREEN Routine 08/29/2016 3:00 PM CDT Encounter for screening for malignant neoplasm of prostate from Last 3 Months or Most Recently Relevant to Health Maintenance Results * (ABNORMAL) CMP (Comprehensive Metabolic Panel) (01/27/2017 10:33 PM CDT) SODIUM 128(L) 131 - 143 mmol/L 01/27/2017 11:10 PM CDT [facility] POTASSIUM 4.0 3.5 - 5.1 mmol/L 01/27/2017 11:10 PM CDT [facility] CHLORIDE 91(L) 100 - 110 mmol/L 01/27/2017 11:10 PM CDT [facility] CO2, VENOUS 21(L) 22 - 32 mmol/L 01/27/2017 11:10 PM CDT [facility] ANION GAP 20.0 8.0 - 20.0 mmol/L 01/27/2017 11:10 PM CDT [facility] GLUCOSE 156(H) 70 - 105 mg/dL 01/27/2017 11:10 PM CDT [facility] BUN 51(H) 10 - 31 mg/dL 01/27/2017 11:10 PM CDT [facility] CREATININE, BLOOD 4.33(H) 0.60 - 1.30 mg/dL 01/27/2017 11:10 PM CDT [facility] BUN/CREATININE RATIO 12 12 - 20 ratio 01/27/2017 11:10 PM CDT [facility] TOTAL PROTEIN 7.9 6.0 - 8.3 g/dL 01/27/2017 11:10 PM CDT [facility] ALBUMIN 3.7 3.5 - 5.2 g/dL 01/27/2017 11:10 PM CDT [facility] A/G RATIO 0.9(L) 1.0 - 2.0 01/27/2017 11:10 PM CDT [facility] CALCIUM 8.8(L) 8.9 - 10.3 mg/dL 01/27/2017 11:10 PM CDT [facility] T BILI 0.3 0.3 - 1.2 mg/dL 01/27/2017 11:10 PM CDT [facility] SGOT (AST) 18 1 - 40 U/L 01/27/2017 11:10 PM CDT [facility] SGPT (ALT) 10 1 - 40 U/L 01/27/2017 11:10 PM CDT [facility] ALKALINE PHOSPHATASE 73 40 - 130 U/L 01/27/2017 11:10 PM CDT [facility] GFR, EST. NONAFRICAN 14(L) >=60 01/27/2017 11:10 PM CDT [facility] GFR, EST. 17(L) >=60 01/27/2017 11:10 PM CDT [facility] Comment: Creatinine Clearance is the preferred criteria for selecting drug dose adjustments in renally impaired patients. The GFR is provided as additional pertinent clinical information. GFR is reported in mL/min/1.73 sq m. Blood specimen (specimen) Venipuncture / Unknown 01/27/2017 10:33 PM CDT 01/27/2017 10:41 PM CDT us Cy Gonzales MD CHEMISTRY ORDERABLES Final Resul t [facility] [address] [place] [address] * Hemoglobin A1C w/ Estimated Glucose (12/27/2016 3:05 PM CDT) Pathologist [facility] HGB-A1C 6.4 4.4 - 6.4 % 12/27/2016 8:45 PM CDT [facility] Est Average Glucose 137.0 mg/dL 12/27/2016 8:45 PM CDT [facility] Blood specimen (specimen) Venous Catheter (IV) / Unknown 12/27/2016 3:05 PM CDT 12/27/2016 3:19 PM CDT Narrative [facility] - 12/27/2016 8:45 PM CDT HEMOGLOBIN A1C: DIABETIC PATIENTS: WELL-CONTROLLED: 6.2 - 7.0 INTERMEDIATE WELL-CONTROLLED: 7.0 - 9.0 POORLY-CONTROLLED: >9.0 Herbert ANG CHEMISTRY ORDERABLES Emy l Result Performing Organization Address [facility] Co de Phone Number [facility] [address] [place] [address] * (ABNORMAL) PSA SCREEN (08/29/2016 3:00 PM CDT) [facility] PSA SCREEN, TOTAL 11.87(H) 0.00 - 4.00 ng/mL 08/29/2016 6:58 PM CDT [facility] Blood specimen (specimen) No Phlebotomy Charged / Unknown 08/29/2016 3:00 PM CDT 08/29/2016 5:14 PM CDT Narrative [facility] - 08/29/2016 6:58 PM CDT PSA NOTE: The PSA value should be used in conjunction with information available from clinical evaluation and other diagnostic procedures. Yvan Christensen MD CHEMISTRY ORDERABLES Fi nal Result Performing Organization Address City/[facility]/ZIP Co de Phone Number [facility] [address] [place] [address] from Last 3 Months or Most Recently Relevant to Health Maintenance Insurance MEDICARE MEDICAID [place] Advance Directives * Full Code (Latest Code Status on File) Date Activated Date Inactivated Comments 12/27/2016 10:32 PM 12/30/2016 5:03 PM CPR-Full Tr eatment: FULL ARREST: Attempt Resuscitation/CPR wit intubation and mechanical ventilation. PRE-ARREST: Use entire range of life support measures to stabilize the patient. * Full Code Date Activated Date Inactivated Comments 06/25/2015 11:11 AM 06/28/2015 4:06 PM Full Code: FULL ARREST: Attempt Resuscitation/CPR and use intubation and mechanical ventilation as indicated. PRE-ARREST: Use all measures to stabilize patient. Care Teams Livestock Judging Coach Relationship Specialty Start Date End Date Matthew Garcia MD [address] [place] [address] PCP - General Internal Medicine 06/25/15 Lobo Herrmann MD [address] [place] [address] Consulting Physician Urology 11/27/16 Yvan Christensen MD [address] [address] Consulting Physician Radiation Oncology 11/27/16
--- OUTSIDE RECORDS SUMMARY | 2024-09-13 12:38 | XMS_ITS | Encounter Summary ---
Author Organization [facility] Address [address] [place] [address] Phone Care Team Providers Care Mergers And Acquisitions Manager Name Role Phone Matthew Garcia MD Primary Care Provider Reason for Visit * Reason Onset Date Comments Med Refill 03/25/2022 Encounter Details Date Type Department Care Team (Late st Contact Info) Description 03/25/2022 Refill [facility] [address] [place] [address] Zoe Harris MA [address] [place] [address] Social History Tobacco Use Types [...] Description 09/14/2024 10:45 AM CDT Office Visit [facility] [address] [place] [address] Regan Robles MD [address] [place] [address] [address] [place] [id number] documented as of this encounter Visit Diagnoses Not on filedocumented in this encounter Care Teams Mergers And Acquisitions Manager Relationship Specialty Start Date End Date Matthew Garcia MD [address], [address] [place] [address] PCP - General Internal Medicine 12/10/18 documented as of this encounter
--- OUTSIDE RECORDS SUMMARY | 2024-09-13 12:38 | XMS_ITS | Referral Summary ---
Author Organization [facility] [address] Address [address] [place] [address] Phone Care Team Providers Care Manager Etl Name Role Phone Michael Garcia MD Unavailable [phone] Michael Garcia MD Primary Care Provider Nando Shirley MD Unavailable [phone] Regan Robles MD Unavailable [phone] Encounters Date Type Department Care Team Description 08/23/2024 Telephone [facility] [address] [place] [phone] Michael Garcia MD Medication Issue 08/06/2024 2:15 PM CDT Office Visit [place] [facility] at [address] [place] [phone] Mario Van MD Primary hypertension (Primary Dx) 07/15/2024 10:45 AM DIVISION CHIEF Office Visit [facility] [address] [place] [phone] Michael Garcia MD Morbid obesity with BMI of 40.0-44.9, adult (HCC) (Primary Dx); Diabetic nephropathy associated with diabetes mellitus due to underlying condition (HCC); Dizziness; CKD (chronic kidney disease) stage 5, GFR less than 15 ml/min (HCC); Other secondary osteoarthritis of multiple sites 07/06/2024 Telephone [facility] [address] [place] [address] Michael Garcia MD 06/21/2024 Telephone [place] [facility] at [address] [place] [address] Cristina Farr MA 06/21/2024 Telephone [place] [facility] at [address] [place] [address] Mario Van MD from Last 3 Months Allergies No known active allergies Medications blood-glucose meter (NaHereTOUCH ULTRA SYSTEM KIT) kit use once daily [...] 04/26/2024 Assessment & Plan (07/17/2024 6:35 PM DIVISION CHIEF): Patient is admitted to [facility] in end of 13 May 2024 because of dizziness sustained approximately 3 days did see him on a follow-up visit his dizziness has resolved at this time no further testing indicated. Patient is so advised. Assessment & Plan (07/14/2024 4:41 PM DIVISION CHIEF): Admitted to [facility] on 05/24/2024 intense dizziness patient is subsequently discharged on May 26, 2024 and went to extended Care for 2 days and discharge for home patient has a thorough evaluation including CT scans head cardiac monitoring exact etiology was found patient has known end-stage renal disease. Patient is awaiting renal transplant. Dialysis has been discussed with his meter reader chief Dr. Robles. The time of his visit on 06/03/2024 his symptoms dizziness have improved by least 80%. Medication reconciliation completed. Chronic health problems hypertension, hyperlipidemia, renal failure. Patient's diabetes excellent control for last 4 years. Hemoglobin 6.6-7.0 range consistently. Note for the visit of 06/03/2024 Assessment & Plan (05/08/2024 3:25 PM DIVISION CHIEF): Acute, symptoms in the last 1-2 weeks. [...] for him. Plans get a 30 day air sampling and monitoring. Patient's chronic renal failure diabetic. He is no significant chest pain or shortness with palpitations but they are aggravating to him Chronic left hip pain 05/22/2022 Assessment & Plan (05/22/2022 2:18 PM DIVISION CHIEF): Patient advised me has significant left hip [...] 05/08/2020 Assessment & Plan (07/17/2024 6:36 PM DIVISION CHIEF): End-stage renal disease patient has seen a vascular surgeon had the [facility] preparing for dialysis at this time all of his lab is done by Nephrology Dr. Robles. Assessment & Plan (06/14/2024 1:43 PM DIVISION CHIEF): Considering patient utilizes both of his upper [...] steps. Assessment & Plan (05/08/2024 3:22 PM DIVISION CHIEF): Chronic, stable. Co managed by Nephrology Baseline creatinine around 3.5, recent creatinine last week was up to 4.6. He is not on dialysis yet but has been discussing with his meter reader chief Dr. Robles. Continue hydrochlorothiazide and losartan as prescribed for now. We will continue to monitor Assessment & Plan (02/22/2024 6:39 PM CDT): Patient has end-stage renal disease stage IV. He is under care of Dr. Aravind Robles meter reader chief. Assessment & Plan (01/10/2024 4:26 PM CDT): [...] lab results pending ordered by Dr. Robles meter reader chief. Assessment & Plan (05/22/2022 2:11 PM DIVISION CHIEF): Patient advised me that Dr. Robles his meter reader chief advised him in approximately 1 year he may need to start dialysis Assessment & Plan (09/14/2021 3:35 PM CDT): Update BMP/EGFR to monitor patient chronic renal failure status Assessment & Plan (04/12/2021 1:51 PM DIVISION CHIEF): Patient under care of Dr. Aravind Robles he has had appointment the last 30 days I reviewed the notes patient is stable at this time. Patient has stage III chronic renal failure S/P total knee arthroplasty, left 05/08/2020 Left knee pain 03/13/2020 Overview (03/13/2020): Added automatically from request for surgery [id number] Medicare annual wellness visit, subsequent 02/10 Assessment & Plan (11/07/2022 6:49 PM CDT): History and physical completed patient's health risk assessment health maintenance reviewed in addressed. Seven components of patient's care gap are addressed. He is under care of meter reader chief therefore routine laboratory studies that I would do his part of his diabetes for his kidneys managed by his meter reader chief.. Assessment & Plan (09/14/2021 3:33 PM CDT): [...] (07/27/2019): Added automatically from request for surgery [id number] Assessment & Plan (08/01/2023 5:44 PM CDT): Patient continues to have bleeding hemorrhoids he is advised me he is scheduled for colonoscopy in September of 2023 Assessment & Plan (09/14/2021 3:34 PM CDT): Patient is under care of GI regarding his hemorrhoidal problem Assessment & Plan (05/15/2021 3:00 PM DIVISION CHIEF): No hemorrhoids were seen on exam with [...] understanding. Assessment & Plan (04/12/2021 1:51 PM DIVISION CHIEF): Hemorrhoids continues to be a problem he has seen Dr. Oscar mcgarry of account adjuster and the infrared coagulation treatment has not been effective will refer to General surgery. Assessment & Plan (11/08/2019 5:42 PM CDT): Symptomatic hemorrhoids related to constipation patient given samples MiraLax stool softener. Diabetic nephropathy associa brea with type 2 diabetes mellitus 02/22/2019 Hyperparathyroidism due to renal insufficiency 1 History of colon polyps 06/08/2018 Overview (06/08/2018): Added automatically from request for surgery [id number] Morbid obesity with BMI of 40.0-44.9, adult 12/2017 Assessment & Plan (07/17/2024 6:38 PM DIVISION CHIEF): Chronic problem unchanged BMI 40 past years [...] improving. Assessment & Plan (04/27/2018 5:04 PM DIVISION CHIEF): Body mass index 42.13 the patient is [...] at this time advised patient take vitamin-D [id number]. No new recommendations Erectile dysfunction following radical prostatec lakeisha 04/11/2017 Assessment & Plan (04/11/2017 1:06 PM DIVISION CHIEF): Patient requested Viagra, was given samples by his urologist tried 1 time it did not work. Patient is given samples of Viagra 100 milligrams he understands instructions on how to take. Chronic pain of right knee 03/10/2017 Assessment & Plan (05/14/2021 3:52 PM DIVISION CHIEF): For the past 30 days he has [...] Friday Assessment & Plan (07/09/2019 12:57 PM DIVISION CHIEF): Patient advised me that he so a [...] workman's comp case. He advised me his collections attorney of a total in contact his PCP regarding this. Patient x-ray returned showing he has a fractured patella a broken screw in the prosthesis. Patient is to contact his collections attorney is any workman's comp a involvement which I seriously doubt. Otherwise refer this patient to Dr. Guzman . Assessment & Plan (04/27/2018 5:12 PM DIVISION CHIEF): Chronic condition special left knee patient is wear knee brace permanently no change in status. Managed by Orthopedics. Drug-induced constipation 02/15/2017 Assessment & Plan (04/27/2018 5:12 PM DIVISION CHIEF): Managed by pain clinic. Assessment & Plan (02/15/2017 9:41 AM CDT): Patient having some constipation status post recent surgery in medication. Given samples of Linzess 72 milligrams 1 tablet daily. He needs to additional medicines he will call me for a prescription. Hospital discharge follow-up 02/10/2017 Assessment & Plan (05/25/2020 6:15 PM DIVISION CHIEF): Patient admitted to her [facility] [...] 12/24/2016 Assessment & Plan (04/26/2024 10:00 PM DIVISION CHIEF): >>ASSESSMENT AND PLAN FOR DM (DIABETES MELLITUS) ([facility]) WRITTEN ON 11/09/2016 3:08 PM BY MICHAEL [...] 7.0 Assessment & Plan (04/26/2024 10:00 PM DIVISION CHIEF): >>ASSESSMENT AND PLAN FOR DM (DIABETES MELLITUS) ([facility]) WRITTEN ON 04/11/2017 10:15 AM BY MICHAEL GARCIA MD . Patient's last HgbA1c was June 2016 was 6.6 plans at this time repeat hemoglobin HgbA1c today. Assessment & Plan (04/26/2024 10:00 PM DIVISION CHIEF): >>ASSESSMENT AND PLAN FOR DM (DIABETES MELLITUS) ([facility]) WRITTEN ON 06/06/2017 11:12 AM BY MICHAEL GARCIA MD Patient's hemoglobin HgbA1c has changed from 6.4 a year ago to 7.2 the past 30 days however patient is anemic with a hemoglobin of 9.2. Will start januvia at this time recheck in 3 months. Metformin previous discontinued because of renal functions. Assessment & Plan (04/26/2024 10:00 PM DIVISION CHIEF): >>ASSESSMENT AND PLAN FOR DM (DIABETES MELLITUS) ([facility]) WRITTEN ON 09/16/2017 10:50 AM BY MICHAEL GARCIA MD Diabetes is been pretty much under good control will get a repeat hemoglobin HgbA1c today. Assessment & Plan (04/26/2024 10:00 PM DIVISION CHIEF): >>ASSESSMENT AND PLAN FOR DM (DIABETES MELLITUS) ([facility]) WRITTEN ON 04/27/2018 5:07 PM BY MICHAEL GARCIA MD Diabetes has been well controlled hemoglobin HgbA1c runs anywhere from 6.4-7.1 range no change in therapy at this time Assessment & Plan (04/26/2024 10:00 PM DIVISION CHIEF): >>ASSESSMENT AND PLAN FOR DM (DIABETES MELLITUS) ([facility]) WRITTEN ON 07/24/2018 4:31 PM BY MICHAEL GARCIA MD Diabetes is unchanged. Continue current treatment regimen. Reminded to bring in blood sugar diary at next visit. Dietary recommendations for ADA diet. Regular aerobic exercise. Discussed ways to avoid symptomatic hypoglycemia. Discussed sick day management. Discussed foot care. Diabetes will be reassessed in 6 months. Assessment & Plan (04/26/2024 10:00 PM DIVISION CHIEF): >>ASSESSMENT AND PLAN FOR DM (DIABETES MELLITUS) ([facility]) WRITTEN ON 10/06/2018 5:27 PM BY MICHAEL GARCIA MD Patient's last hemoglobin HgbA1c was 7.2. Will repeat HgbA1c today date of lipid profile and BMP. Patient has limited exercise given his restriction with his knees Assessment & Plan (04/26/2024 10:00 PM DIVISION CHIEF): >>ASSESSMENT AND PLAN FOR DM (DIABETES MELLITUS) ([facility]) WRITTEN ON 02/08/2019 6:18 PM BY MICHAEL [...] exam. Assessment & Plan (04/26/2024 10:00 PM DIVISION CHIEF): >>ASSESSMENT AND PLAN FOR DM (DIABETES MELLITUS) ([facility]) WRITTEN ON 07/09/2019 12:54 PM BY MICHAEL GARCIA MD Patient's weight is down 16 lb from the last visit he has made dietary changes since May 12 he is no longer a eating candy drinking sodas. Anticipate his HgbA1c below be improved as well as lipid profile. Assessment & Plan (04/26/2024 10:00 PM DIVISION CHIEF): >>ASSESSMENT AND PLAN FOR DM (DIABETES MELLITUS) ([facility]) WRITTEN ON 08/13/2019 4:13 PM BY MICHAEL GARCIA MD Patient's diabetes very well control HgbA1c is 6.9 % improvement from 7.8 approximately 10 months ago.. Patient is taking Actos/pioglitazone and tradjenta. 5mg/day. Repeat HgbA1c on next visit. Assessment & Plan (04/26/2024 10:00 PM DIVISION CHIEF): >>ASSESSMENT AND PLAN FOR DM (DIABETES MELLITUS) ([facility]) WRITTEN ON 11/08/2019 5:42 PM BY MICHAEL [...] normal Assessment & Plan (04/26/2024 10:00 PM DIVISION CHIEF): >>ASSESSMENT AND PLAN FOR DM (DIABETES MELLITUS) ([facility]) WRITTEN ON 02/11/2020 1:06 PM BY MICHAEL GARCIA MD Patient most HgbA1c was 6.6. Repeat HgbA1c in 4 months Assessment & Plan (04/26/2024 10:00 PM DIVISION CHIEF): >>ASSESSMENT AND PLAN FOR DM (DIABETES MELLITUS) ([facility]) WRITTEN ON 04/20/2020 6:59 PM BY MICHAEL GARCIA MD Diabetes continues to be well controlled. Assessment & Plan (04/26/2024 10:00 PM DIVISION CHIEF): >>ASSESSMENT AND PLAN FOR DM (DIABETES MELLITUS) ([facility]) WRITTEN ON 12/11/2020 7:00 PM BY MICHAEL GARCIA MD Patient feels well continues to check his glucose several times a week results been very good. Will update HgbA1c urine for microalbuminuria and BMP on today's visit. Patient made aware he needs to get eye exam once a year. Assessment & Plan (04/26/2024 10:00 PM DIVISION CHIEF): >>ASSESSMENT AND PLAN FOR DM (DIABETES MELLITUS) ([facility]) WRITTEN ON 04/12/2021 1:48 PM BY MICHAEL GARCIA MD Tension well controlled patient recent HgbA1c at the meter reader chief's office results was 6.9. No change in therapy Assessment & Plan (04/26/2024 10:00 PM DIVISION CHIEF): >>ASSESSMENT AND PLAN FOR DM (DIABETES MELLITUS) ([facility]) WRITTEN ON 01/22/2022 4:09 PM BY MICHAEL GARCIA MD Hemoglobin HgbA1c 7.3 patient has no polyuria polyphagia polydipsia. Will continue present therapy. Reviewed patient's glucometer readings. Recheck HgbA1c Assessment & Plan (04/26/2024 10:00 PM DIVISION CHIEF): >>ASSESSMENT AND PLAN FOR DM (DIABETES MELLITUS) ([facility]) WRITTEN ON 08/07/2022 3:41 PM BY MICHAEL GARCIA MD Patient did not tolerate Toujeo at 1.5 mg once a week I am going to resume Tradjenta management of his diabetes the Tradjenta his HgbA1c was 7.15 April 2022. Patient's chronic renal failure he just had lab [facility] in [facility] in the past 5 days requested release of records from there. Patient will be seen in meter reader chief next few days. Like to maximize medications [...] High Assessment & Plan (04/26/2024 10:00 PM DIVISION CHIEF): >>ASSESSMENT AND PLAN FOR TYPE 2 DIABETES [...] 7.3 Assessment & Plan (05/22/2022 2:11 PM DIVISION CHIEF): Patient's HgbA1c is 7.5 minute discontinue Tradjenta [...] use 11/27/2016 Overview (11/26/2023): Has been on [place] for about the past 2 years for [...] with intermediate recurrence risk, stage T2B-C or Armando 7 or prostate-specific antigen (PSA) 10-20 11/09/2016 Assessment & Plan (11/09/2016 3:02 PM CDT): Patient recently had a biopsy showing prostate cancer. Schedule have surgery in about 2-3 weeks he will be treated through [facility] Grade III hemorrhoids 11/09/2016 Assessment & Plan (07/27/2019 1:20 PM CDT): III roids. Discussed options of conservative treatment, IRC, surgery. He desires IRC so will set it up Assessment & Plan (07/09/2019 12:55 PM DIVISION CHIEF): Patient continues to have bleeding hemorrhoids he states he will get back in contact with the account adjuster possibly have a procedure done this solve this problem. Assessment & Plan (04/30/2019 3:37 PM DIVISION CHIEF): Bleeding [id number] prolapse and reviewed recent colonoscopy. Discussed anusol HC, IRC, surgery. He wants to try the anusol first. His Left knee need reconstruction and I warned of the opiod induced [id number] so he is aware of need of combating that post op. He to see the surgeon at [facility] next week. He will call [...] 06/28/2015 Assessment & Plan (05/08/2024 3:17 PM DIVISION CHIEF): Chronic, uncontrolled. See HPI for details, cardiology [...] encouraged. Assessment & Plan (04/26/2024 9:58 PM DIVISION CHIEF): >>ASSESSMENT AND PLAN FOR HTN (HYPERTENSION), BENIGN [...] diet. Assessment & Plan (04/26/2024 9:58 PM DIVISION CHIEF): >>ASSESSMENT AND PLAN FOR HTN (HYPERTENSION), BENIGN WRITTEN ON 04/12/2021 1:49 PM BY MICHAEL GARCIA MD Hypertension well controlled patient is tolerating medications. Us with patient trying may do better at controlling weight. Assessment & Plan (04/26/2024 9:58 PM DIVISION CHIEF): >>ASSESSMENT AND PLAN FOR HTN (HYPERTENSION), BENIGN WRITTEN ON 01/22/2022 4:03 PM BY MICHAEL GARCIA MD Systolic pressures have confirmed systole in 140 range diastolic readings are good. Is tolerating medications no change in therapy Assessment & Plan (04/26/2024 9:58 PM DIVISION CHIEF): >>ASSESSMENT AND PLAN FOR HTN (HYPERTENSION), BENIGN WRITTEN ON 05/22/2022 2:10 PM BY MICHAEL GARCIA MD Hypertension remains very well controlled patient is tolerating medications no change in therapy Assessment & Plan (04/26/2024 9:58 PM DIVISION CHIEF): >>ASSESSMENT AND PLAN FOR HTN (HYPERTENSION), BENIGN WRITTEN ON 06/26/2022 3:09 PM BY MICHAEL GARCIA MD Blood pressure remains well control no change in therapy Assessment & Plan (08/01/2023 5:47 PM CDT): Blood pressure remains well controlled patient has chronic renal disease and diabetes is also sees a meter reader chief no change in therapy Assessment & Plan (03/23/2023 4:34 PM DIVISION CHIEF): Blood pressure remains reasonably control no change in therapy Assessment & Plan (08/07/2022 3:35 PM CDT): Hypertension remains well controlled no change in therapy Assessment & Plan (12/11/2020 7:01 PM CDT): Blood pressure remains unchanged patient is tolerating medications no change in therapy. Assessment & Plan (05/25/2020 6:16 PM DIVISION CHIEF): Medication reviewed from his recent hospitalization no changes continue present therapy. Patient is asymptomatic with respect any symptoms referable to his hypertension. Assessment & Plan (04/20/2020 6:54 PM DIVISION CHIEF): Hypertension well control no change in therapy. Assessment & Plan (11/08/2019 5:43 PM CDT): Hypertension remains well control no change in therapy continue present medications.. Patient is tolerating medications. Assessment & Plan (08/13/2019 4:14 PM CDT): Hypertension remains well control no change in therapy Assessment & Plan (07/09/2019 12:55 PM DIVISION CHIEF): Hypertension well control no change in therapy [...] medications. Assessment & Plan (04/27/2018 5:19 PM DIVISION CHIEF): Hypertension well controlled patient is tolerating medicines. Continue present therapy. Assessment & Plan (09/16/2017 10:49 AM CDT): Hypertension is unchanged. Continue current treatment regimen. Dietary sodium restriction. Weight loss. Continue current medications. Blood pressure will be reassessed at the next regular appointment. Type 2 diabetes mellitus without complication Assessment & Plan (01/10/2024 4:28 PM CDT): Hemoglobin HgbA1c noted meter reader chief no 12/31/2023 states his HgbA1c was 6.8. Patient's last HgbA1c in July was 7.0. He remains on Tradjenta 5 mg daily. Have end-stage renal disease which could be hypertension diabetic etiology is meter reader chief is not identified exact cause of his [...] today. Patient is a follow-up with his meter reader chief in November his GFR on last visit was 30 I will see this patient in December. Patient's advised make sure eye exam annual. Patient advised me that a underwriting service representative or subcontractor from at [employer] came to his home did blood test in his exam in his eyes this documentation is not in the chart I will look further into getting copies of this information Assessment & Plan (03/23/2023 4:34 PM DIVISION CHIEF): Patient is asymptomatic HgbA1c was 6.8 creatinine is 3.0 patient saw the meter reader chief in the last 2 months. Stable and has no complaints at this time. Patient remains on Tradjenta 5 mg daily. Patient's advised get annual eye exam. Spinal stenosis of lumbar region 06/24/2014 Overview (08/16/2016): Spinal stenosis of lumbar region Assessment & Plan (04/27/2018 5:05 PM DIVISION CHIEF): Is spinal stenosis managed by pain clinic. OA (osteoarthritis) 09/25/2013 Overview (11/26/2023): DJD (degenerative joint disease) Assessment & Plan (07/17/2024 6:38 PM DIVISION CHIEF): Osteoarthritis both knees reasonably managed at times with arthritis Tylenol. Assessment & Plan (09/14/2021 3:36 PM CDT): Bilateral osteoarthritis predominantly knees he has had a knee replacement no new changes. Assessment & Plan (05/14/2021 3:54 PM DIVISION CHIEF): Patient's osteoarthritis multiple joints his complaint of [...] back. Assessment & Plan (04/27/2018 5:02 PM DIVISION CHIEF): Arthritis both knees left worse than right [...] Obesity Assessment & Plan (05/08/2024 3:17 PM DIVISION CHIEF): Chronic, improving. Down 4 lb in the [...] (09/14/2021): Added automatically from request for surgery [id number] Rectal bleeding 07/05/2021 05/22/2022 Overview (07/05/2021): Added automatically from request for surgery [id number] Assessment & Plan (07/18/2021 3:59 PM DIVISION CHIEF): Likely from hemorrhoid bleeding. Will schedule colonoscopy for full evaluation and possible banding of the hemorrhoid the same time. Because of his constipation issue with 2 days colon preparation to be planned. Follow-up after the colonoscopy as needed Preoperative clearance 04/20/202007/31 Assessment & Plan (04/20/2020 6:58 PM DIVISION CHIEF): This patient has been in the care 20 years he has examine today and he is cleared for upcoming knee replacement. This clears does include the evaluation of his abdominal pain. Rupture of left quadriceps tendon 05/21/2019 04/12/2021 Assessment & Plan (05/21/2019 11:29 AM DIVISION CHIEF): Pt is here for a face to face for a walker. He has had left knee problems since 2004, and has hx of replacement and subsequent surgeries since. Most recently he was diagnosed with a left quadricep tendon rupture, with displacement of the femur and the patella as evidenced by films that were done at [facility] on 03/22/2019. He has since seen the orthopedist Dr. Nando Shirley with [facility] in [facility]. Pt reports that Dr. Shirley [...] (06/08/2018): Added automatically from request for surgery [id number] Erectile dysfunction 01/21/2018 019 Overview (01/21/2018): Added automatically from request for surgery [id number] Renal failure 04/11/2017 09/16/2017 Assessment & Plan (06/28/2017 5:00 PM DIVISION CHIEF): Patient creatinine is improved 1.9 1st week in May. and from a previous 2.69. In March will continue to monitor Assessment & Plan (04/11/2017 1:05 PM DIVISION CHIEF): Patient's creatinine is 2.69 with the GFR [...] 21 Assessment & Plan (04/20/2020 6:55 PM DIVISION CHIEF): This patient is scheduled for knee replacement [...] is a [employer] problem I have no [place] other recommendations at this time. Urinary incontinence [...] 04/27/2018 Assessment & Plan (04/06/2018 3:07 PM DIVISION CHIEF): Last several months has noted rectal leakage [...] evaluated here in office sent to [facility] was admitted. His of his exam is clear was very and was symptomatic significant blood loss. Gout, unspecified 12/24/2016 04/26/2024 Assessment & Plan (01/10/2024 4:37 PM CDT): Patient's gout is well controlled with use of allopurinol daily Assessment & Plan (12/11/2020 7:01 PM CDT): Gout appears to be well control at this time. Assessment & Plan (04/27/2018 5:11 PM DIVISION CHIEF): Gout is stable no recent flare-ups. Assessment & Plan (09/16/2017 10:49 AM CDT): Reviewed with patient treatment for gout regarding chronic treatment/preventive treatment allopurinol, acute care treatment with NSAIDs and colchicine when needed. Notalgia 12/24/2016 04/27/2018 Dyslipidemia 11/27/2016 04/26/2024 Rupture of quadriceps tendon 11/23/2014 02/08/2019 Hemorrhoid 04/26/2024 Overview (04/18/2020): IRC July 2019 Colon polyp 04/12/2021 Hyperparathyroidism 08/08/19 21 Sarcoidosis 04/12/2021 Immunizations Immunization Administration Dates Next Due Influenza, [...] Ba.1 02/17/2024 Tdap 09/09/2017 ZOSTER Recombinant 02/07/2018,09/09/2017 Social History Tobacco Use Types Packs/Day Years [...] on file Legal Sex Male 1:54 AM DIVISION CHIEF Gender Identity Not on file Sexual Orientation Not on file Last Filed Vital Signs Vital Sign Reading Time Taken Comments Blood Pressure 150/88 08/06/2024 1:56 PM CDT Pulse 79 08/06/2024 1:56 PM CDT Temperature 36.9 C (98.4 F) 07/15/2024 10:50 AM DIVISION CHIEF Respiratory Rate 18 08/06/2024 1:56 PM CDT Oxygen Saturation 97% 07/15/2024 10: 50 AM DIVISION CHIEF Inhaled Oxygen Concentration - - Weight 119.2 kg (262 lb 12.8 oz) 08/06/2024 1:56 PM CDT Height 174 cm (5' 8.5 ) 08/06/2024 1:56 PM CDT Body Mass Index 39.38 08/06/2024 1:56 PM CDT Plan of Treatment Not on file Medical Devices Implanted Type Area Solar Installation Crew Supervisor Device Identifier Shelf Expiration Date Model / Serial / Lot Coloplast Ana 13250 [employer] S[employer] Sling Urethral Male - [id number] Implanted:Qty: 1 on 02/23/2018 by Nguyễn Bautista MD at [facility] N/A: Urethra Coloplast Ana 04/09/2019 [id number] / / [id number] [employer]oplast [employer] 91-9480sc Titan Lock-Out Inflatable Self Contain Fluid Fill Tube Standard Latex Free - [id number] - [id number] Implanted:Qty: 1 on 02/23/2018 by Nguyễn Bautista MD at [facility] N/A: Penis Coloplast Ana 10/23/2022 91-9480SC / [id number] / [employer]oplast Ana [id number] Titan Coloplast Lock-Out Inflatable Self Contain Fluid Fill Valve Latex Free - [id number] - [id number] Implanted:Qty: 1 on 02/23/2018 by Nguyễn Bautista MD at [facility] Left: Groin Coloplast Ana 12/24/2022 [id number] / [id number] / [employer]oplast Ana [id number] Titan Coloplast Lock-Out 22cm Pump Set Inflatable Fluid Fill Soft Latex Free - [id number] - [id number] Implanted:Qty: 1 on 02/23/2018 by Nguyễn Bautista MD at [facility] N/A: Penis Coloplast Ana 10/24/2022 [id number] / [id number] / [employer] 1896-5032s 5mm 32.5mm Lock Full Thread Screw Bone Titanium Sterile T2 Nail - [id number] Implanted:Qty: 1 on 04/28/2020 by Nando Shirley MD at [facility] Left: Leg [employer] 01/09/2025 [id number] S / / [id number] [employer] 6-5027s 5mm 27.5mm Lock Full Thread Screw Bone Titanium Sterile T2 Nail - [id number] Implanted:Qty: 1 on 04/28/2020 by Nando Shirley MD at [facility] Left: Leg [employer] 07/09/2022 [id number] S / / [id number] [employer] [id number] Osteosponge Allograft Chips Radiolucent Thk4-10mm Graft 30cc Bone - [id number] - [id number] Implanted:Qty: 1 on 04/28/2020 by Nando Shirley MD at [facility] Left: Knee [employer] 09/22/2024 [id number] / [id number] / [employer] [id number] Osteoselect Putty Syringe Graft 10ml Bone Demineralized Bone - [id number] - [id number] Implanted:Qty: 1 on 04/28/2020 by Nando Shirley MD at [facility] Left: Knee [employer] 12/29/2022 [id number] / [id number] / Nail 13mm 780mm Left T2 Im Ti Strl Arthrodesis - [id number] Implanted:Qty: 1 on 04/28/2020 by Nando Shirley MD at [facility] Left: Leg [employer] 07/09/2021 [id number] S / / [id number] [employer] 1896-5050s 5mm 50mm Lock Full Thread Screw Bone Titanium Sterile T2 Nail - [id number] Implanted:Qty: 1 on 04/28/2020 by Nando Shirley MD at [facility] Left: Leg [employer] 10/09/2024 1896- 5050 S / / [id number] [employer] 1896-5045s 5mm 45mm Lock Full Thread Screw Bone Titanium Sterile T2 Nail - [id number] Implanted:Qty: 1 on 04/28/2020 by Nando Shirley MD at [facility] Left: Leg [employer] 03/11/2024 6080-8331 S / / [id number] Explanted Type Area Solar Installation Crew Supervisor Device Identifier Shelf Expiration Date Model / Serial / Lot [employer] 7650- 1/8in 3.5in Knee Flute Square Pin Fixation Stainless Steel - [id number] Explanted:Qty: 1 on 04/28/2020 at [facility] Left: Leg [employer] 7650- / / [employer] 1806-0050s Naresh T2 3mm 285mm Retrograde Supracondylar Wire Fixation - [id number] Explanted:Qty: 1 on 04/28/2020 by Nando Shirley MD at [facility] Left: Leg [employer] 08/10/2023 1806-0050S / / [id number] [employer] 1806-0050s Naresh T2 3mm 285mm Retrograde Supracondylar Wire Fixation - [id number] Explanted:Qty: 1 on 04/28/2020 by Nando Shirley MD at [facility] Left: Leg [employer] 07/10/2023 1806-0050S / / [id number] Procedures Procedure Name Priority Date/Time Associated Diagnosis Comments EGFR Routine 04/20/2024 12:34 PM DIVISION CHIEF HM LIPID PANEL Routine 01/15/2024 COLONOSCOPY 09/17/2023 [...] Results * (ABNORMAL) eGFR (04/20/2024 12:34 PM DIVISION CHIEF) eGFR 13(L) >=60 mL/min/1. 73 m2 Comment: [...] reviewed 2021. Blood 04/20/2024 12:3 4 PM DIVISION CHIEF 04/20/2024 12:48 PM DIVISION CHIEF us Regan Robles MD LAB BLOOD ORDERABLES Final Re sult CARLO STRONG (GRANNIS) 1 [facility] Department [place] [address] * LIPID PANEL (01/15/2024) SCRIBED Cholesterol, Total 167 [facility] SCRIBED Triglycerides 113 [facility] SCRIBED HDL 55 [facility] SCRIBED LDL 89 [facility] 01/15/2024 us Historical Provider HEALTH MAINTENANCE Final Result [facility] [address] [phone] * Colonoscopy (09/17/2023 8:30 AM CDT) Anatomical Region Laterality Modality Other Narrative Procedure Note Christian Rivas MD - 09/17/2023 8:30 AM CDT [facility] Patient Name: Ephraim Ospina Procedure Date: 09/17/2023 8:30 AM Date of : 1955 Admit Type: Outpatient Age: 68 Gender: Male Attending MD: Christian Rivas M.D. Room: [facility] ENDOSCOPY ROOM 1 Note Status: Finalized Patient Profile: This is a 68 year old male. Patient has recurrent episodes of bright red bleeding per rectum. In the past he has IRC treatment and banding ofhemorrhoids. Has chronic anemia Procedure: Colonoscopy Indications: Last colonoscopy: June 2018, Rectal bleeding,Iron deficiency anemia Referring MD: iMchael Garcia M.D. Providers: Christian Rivas M.D. Impression: [...] under direct vision. The Pediatric Colonoscope PCF-H190L [id number] was introduced through the anus and advanced [...] 8:30 AM Procedure Code(s): --- Professional --- 28757, Colonoscopy, flexible; diagnostic, including collection of specimen(s) by brushing or washing, when performed (separateprocedure) 39300, Destruction of internal hemorrhoid(s) by thermal energy (eg, infrared coagulation, cautery, radiofrequency) Diagnosis Code(s): --- Professional --- K64.8, Other hemorrhoids K62.5, Hemorrhage of anus and rectum D50.9, Iron deficiency anemia, unspecified K57.30, Diverticulosis of large intestine without perforation orabscess without bleeding CPT copyright 2020 [employer]. All rights reserved. The codes documented in this report are preliminary and upon operational meteorologist reviewmay be revised to meet current compliance requirements. Recognized by the [employer] [place] [employer] for promoting quality in endoscopy us Christian Rivas MD ENDOSCOPY PROCEDURES Final Result * (ABNORMAL) Hemoglobin A1c (08/01/2023 2:47 PM CDT) Hgb A1C 7.0(H) 4.0 - 5.6 % Estimated Average Glucose 154 mg/dL CARLO Comment: The ADA recommends reporting an estimated Average Glucose (eAG) with all Hemoglobin A1c results using the equation derived from a study of 507 normal and diabetic adults. Minority populations were underrepresented and children were not included. (Diabetes Care 31:4493-0534, 2008). The eAG is not equivalent to a fasting glucose. Blood 08/01/2023 2:47 PM CDT 08/01/2023 7:29 PM CDT Michael Garcia MD LAB BLOOD ORDERABLES Final Result Performing Organization Address [facility] de Phone Number [facility] [address] [place] [address] * (ABNORMAL) Albumin Creatinine Ratio, Urine (12/11/2020 10:50 AM CDT) Pathologist [facility] Albumin Ur 824.7 mg/L CARLO Comment: Interpretive Data No reference range [...] URINE ORDERABLES Final Result Performing Organization Address [facility] Co de Phone Number [facility] [address] [facility] [address] [place], [place] [id number] * PSA screen (11/08/2019 10:44 AM CDT) Pathologist [facility] PSA-Total 1.28 <=5.40 ng/mL CARLO Comment: Interpretive Data AGE SEX REFERENCE INTERVAL 0 minutes-150 years Female None 0 minutes-49 years Male None 50-59 years Male 0-3.90 60-69 years Male 0-5.40 70-79 years Male 0-6.20 80-150 years Male 0-6.20 Current interpretive data last revised 2018. Blood specimen (specimen) 11/08/2019 10:44 AM CDT 11/08/2019 7:09 PM CDT us Michael Garcia MD LAB BLOOD ORDERABLES Final Result [facility] [address] [place] [address] * US Abdominal Aortic Aneurysm Screening (07/21/2019 [...] cm greatest diameters respectively. Michael Garcia MD [facility] US PROCEDURES Final Re sult * Hepatitis C antibody (08/09/2016 9:57 AM CDT) SIGNAL TO CUT-OFF 0.05 <1.00 [facility] Comment: Test performed at [facility] [place] [address] [place] [address] Director: MICHAEL GONZALEZ DO,MPH Hep C Ab NON-REACT JUAN NON-REACT JUAN [facility]ISTORICAL RESULTS 08/09/2016 9:57 AM CDT Michael Garcia MD LAB MICROBIOLOGY - GENERAL ORDERABLES Final Result [facility] HISTORICAL RESULTS from Last 3 Months or Most Recently Relevant to Health Maintenance Insurance [facility] TNA MEDICARE MEDICARE IDPA AETNA MEDICARE GOLD IDPA Advance Directives For more information, please contact: [phone] * Full Code (Latest Code Status on [...] 11:12 AM 07/31/2021 6:06 PM Care Teams Manager Etl Relationship Specialty Start Date End Date Michael Garcia MD PCP - General 01/23/17 Michael Garcia MD 01/07/17 Nando Shirley MD [address] [facility] [address] [place] [address] Consulting Physician Orthopedic Surgery 04/29/20 Regan Robles MD [address] [place] [id number] Consulting Physician Nephrology 02/05/24
== END 2024-09-13 12:06 | disposition home or self-care (01) ==
PROVIDERS: PCP Internal Medicine; Visit Provider Urology
DX: R93.89 Abnormal findings on diagnostic imaging of other specified body structures (principal); C61 Malignant neoplasm of prostate
CPT/HCPCS: 78815; A9596